=== PATIENT | male | born 1990 | race Caucasian/White ===

== ENCOUNTER 2017-05-26 19:06 | Inpatient (IN) ==
[2017-05-26] MEDS ORDERED: Vancomycin 1,000 MG in D5% in Water 250 ML IVPB ONE (19:17)
[2017-05-26] MEDS ORDERED: Piperacillin/Tazobactam 3.375 GM in Water for inj. (sterile) 20 ML IVP ONE (19:17)
--- NOTE | 2017-05-26 19:31 | Emergency Department Note ---
Disposition Clinical Impression: Hyperglycemia, Hyponatremia, Cellulitis of right lower limb, Uncontrolled hypertension Uncontrolled diabetes mellitus Qualifiers: Diabetes mellitus type: type 1 Diabetes mellitus complication status: with hyperglycemia Qualified Code(s): E10.65 - Type 1 diabetes mellitus with hyperglycemia Disposition: Admitted As Inpatient Condition: Serious Time of Disposition: 21:33 General Adult HPI - General Chief complaint: ED General Medical Stated complaint: high blood pressure, high blood sugar Time Seen by Provider: 05/26/17 19:11 Source: EMS Limitations: no limitations Nursing Notes Reviewed: Yes Vital Signs Reviewed: Yes - History of Present Illness HPI Narrative: 27-year-old male complains of feeling ill for the past several weeks but has worsened over the past 3 days. Patient states his been having nausea and vomiting and severe fatigue for the past 3 days. Patient has not eaten, nor has he taken his insulin and is a type I diabetic. Patient states that 3 days ago he did have 2 Mountain Dew's. Patient has amputated right lower extremity at the knee. Amputation performed [address] Fatima. Patient states he noticed a sore on the tip of the amputated leg times one week ago that has gotten worse and is now purulent. Patient states that he is not had follow-up for his wound. Patient has a history of IV drug abuse of heroin as well as pain prescription opioids. Pain Scale: 6 - Related Data Home Medications Medication Instructions Recorded Confirmed Buprenorphine HCl/Naloxone HCl 1 each SL AD 05/26/17 05/26/17 [Suboxone 8 mg-2 mg Sl Film] Allergies Allergy/AdvReac Type Severity Reaction Status Date / Time tramadol Allergy Anaphylaxis Verified 05/26/17 19:19 All systems ED: reviewed and negative except as stated. Review of Systems: As Per HPI Constitutional: Denies: fever, chills Respiratory: Denies: cough, dyspnea, wheezes Gastrointestinal: Reports: nausea, vomiting. Denies: abdominal pain, diarrhea Past Medical History - Past Medical History Attestation: Yes The following information was validated with the patient. Source: patient, nursing notes reviewed Medical history: Reports: diabetes, GERD, hepatitis, hypertension, other Surgical history: Reports: orthopedic, other (Right below knee amputation) Psychiatric history: Reports: anxiety, depression - Social History Smoking Status: Current every day smoker Smokeless Tobacco Status: No Alcohol use: Reports: none Drug use: Reports: marijuana Physical Exam Vital Signs Temperature 96.8 F L 05/26/17 19:10 Pulse Rate 87 05/26/17 19:10 Respiratory Rate 16 05/26/17 19:10 Blood Pressure 176/125 05/26/17 19:10 O2 Sat by Pulse Oximetry 100 05/26/17 19:10 Temperature 96.8 F L 05/26/17 19:10 Pulse Rate 87 05/26/17 19:10 Respiratory Rate 16 05/26/17 19:10 Blood Pressure 176/125 05/26/17 19:10 O2 Sat by Pulse Oximetry 100 05/26/17 19:10 Oxygen Delivery Oxygen Delivery Room Air CONSTITUTIONAL: Alert and oriented X3, patient appears cachectic and malnourished. Patient patient's substernal and has very poor dentition and patient appears ill HEAD: Normocephalic; atraumatic. EYES: PERRL, no scleral icterus. NOSE: The nose is normal in appearance without rhinorrhea RESP: Normal chest excursion with respiration; breath sounds clear and equal bilaterally; no wheezes, rhonchi, or rales CARD: Regular rhythm, without murmurs, rub or gallop ABD: Non-distended; non-tender, soft,without rigidity, rebound or guarding SKIN: Normal for age and race; warm and dry; no apparent lesions EXTREMITIES: Patient has amputation of right leg at the knee. Patient has a large ulceration at the tip of the stump which is purulent when slight pressure is applied to the area around it is warm and boggy. Vital signs show abnormal blood pressure 176/125 - General Limitations: no limitations General appearance: alert, in no apparent distress Course - Reevaluation(s) Reevaluation #1: POC glucose at bedside taken just after arrival is 600 Time: 19:50 Reevaluation #2: Patient still doing well. Time: 21:39 Vital Signs Temperature 96.8 F L 05/26/17 19:10 Pulse Rate 87 05/26/17 19:10 Respiratory Rate 16 05/26/17 19:10 Blood Pressure 176/125 05/26/17 19:10 O2 Sat by Pulse Oximetry 100 05/26/17 19:10 Temperature 97.5 F L 05/26/17 23:07 Pulse Rate 74 05/26/17 23:07 Respiratory Rate 17 05/26/17 23:07 Blood Pressure 127/90 05/26/17 23:07 O2 Sat by Pulse Oximetry 100 05/26/17 23:07 Oxygen Delivery Oxygen Delivery Room Air Medical Decision Making - MDM Narrative Medical decision making narrative: Patient's concerning for DKA/HHS secondary to noncompliance of his insulin, he is a type I diabetic. His symptoms may be exacerbated by infection at the right knee, so will work him up for sepsis. Patient has an amputation. Patient's blood glucose came back at 1021, patient's sodium is low at 110 but adjusted for elevated blood glucose is 122. Patient is receiving IV normal saline. Patient's potassium is 5 and will be started on insulin drip. Patient is restarted on IV antibiotics of vancomycin and Zosyn for his right lower extremity cellulitis and abscess. Patient is still alert and doing well. He is in stable condition and patient will be admitted for further treatment. Patient understands and agrees decision for admission. Patient was accepted for admission by Dr. Jefferson the hospitalist. - Lab Data Lab results reviewed: Yes I reviewed the patient's lab results. Lab results narrative: Short CBC 05/26/17 Range/Units 20:21 WBC 6.8 (4.3-11.1) K/mcL Hgb 11.6 L (12.9-16.9) g/dL Hct 35.2 L (37.5-50.1) % Plt Count 544 H (140-400) K/mcL Neutrophils # 4.8 (1.6-8.9) K/mcL BMP 05/26/17 Range/Units 20:21 Sodium 110 L* (136-145) mEq/L Potassium 5.0 (3.5-5.1) mEq/L Chloride 76 L (98-107) mEq/L Carbon Dioxide 27 (23-29) mEq/L BUN 50 H (6-20) mg/dL Creatinine 2.05 H (0.70-1.30) mg/dL Glucose 1021 H* (70-105) mg/dL Calcium 8.4 L (8.6-10.3) mg/dL Cardiac Enzymes 05/26/17 Range/Units 20:21 Troponin I < 0.03 (< 0.04) ng/mL Liver Function 05/26/17 Range/Units 20:21 Total Bilirubin 0.3 (0.3-1.0) mg/dL Direct Bilirubin 0.2 (0.0-0.2) mg/dL AST 11 L (13-39) Units/L ALT 5 L (7-52) Units/L Alkaline Phosphatase 124 H (34-104) Units/L Albumin 2.8 L (3.5-5.7) g/dL Urine 05/26/17 Range/Units 19:33 Urine Color Yellow (Yellow) Urine Clarity Clear (Clear) Urine pH 5.5 (5.0-8.0) pH Units Ur Specific Eleva > 1.030 H (1.010-1.025) Urine Protein 100 H (Neg-Trace) mg/dL Urine Glucose (UA) >=1000 H (Normal) mg/dL Result diagrams: 05/26/17 20:21 05/26/17 20:21 Lab Results 05/26/17 05/26/17 05/26/17 Range/Units 19:11 19:12 19:33 WBC (4.3-11.1) K/mcL RBC (4.19-5.50) M/mcL Hgb (12.9-16.9) g/dL Hct (37.5-50.1) % MCV (83.0-100.0) fL MCH (28.0-33.3) pg MCHC (31.6-35.5) g/dL RDW (11.5-14.5) % Plt Count (140-400) K/mcL MPV (9.4-12.4) fL Immature Gran % (0-4) % Seg Neutrophils % % Lymphocytes % % Monocytes % % Eosinophils % % Basophils % % Neutrophils # (1.6-8.9) K/mcL Lymphocytes # (0.6-4.6) K/mcL Monocytes # (0.0-1.3) K/mcL Eosinophils # (0.0-0.6) K/mcL Basophils # (0.0-0.2) K/mcL VBG pH (7.32-7.42) pH Units VBG pCO2 (41-51) mmHg VBG pO2 (25-50) mmHg VBG HCO3 (21-27) mEq/L Sodium (136-145) mEq/L Potassium (3.5-5.1) mEq/L Chloride (98-107) mEq/L Carbon Dioxide (23-29) mEq/L BUN (6-20) mg/dL Creatinine (0.70-1.30) mg/dL Est GFR ( Amer) (> 60) Est GFR (Non-Af Amer) (> 60) BUN/Creatinine Ratio (6-26) Glucose (70-105) mg/dL POC Glucose > 600 H* > 600 H* (58-89) Calculated Osmolality (280-300) Calcium (8.6-10.3) mg/dL Phosphorus (2.7-4.5) mg/dL Magnesium (1.6-2.6) mg/dL Total Bilirubin (0.3-1.0) mg/dL Direct Bilirubin (0.0-0.2) mg/dL Indirect Bilirubin (0.0-1.2) mg/dL AST (13-39) Units/L ALT (7-52) Units/L Alkaline Phosphatase (34-104) Units/L Troponin I (< 0.04) ng/mL Serum Total Protein (6.4-8.9) g/dL Albumin (3.5-5.7) g/dL Globulin (2.4-3.5) g/dL Albumin/Globulin Ratio (1.1-2.2) Beta-Hydroxybutyric Acd (0.02-0.27) mmol/L Urine Color Yellow (Yellow) Urine Clarity Clear (Clear) Urine pH 5.5 (5.0-8.0) pH Units Ur Specific Eleva > 1.030 H (1.010-1.025) Urine Protein 100 H (Neg-Trace) mg/dL Urine Glucose (UA) >=1000 H (Normal) mg/dL Urine Ketones Negative (Negative) mg/dL Urine Blood Large H (Negative) Urine Nitrite Negative (Negative) Urine Bilirubin Negative (Negative) Urine Urobilinogen Normal (Normal) mg/dL Ur Leukocyte Esterase Negative (Negative) Urine Microscopic RBC 5-15 H (0-3) per hpf Urine Microscopic WBC 15-30 H (0-3) per hpf Ur Squamous Epith Cells Many H (None-Few) per lpf Urine Bacteria None Seen (None-Few) per hpf Hyaline Casts Few (None-Few) per lpf Ur Culture Indicated? NO (NO) 05/26/17 05/26/17 05/26/17 Range/Units 20:21 20:21 20:21 WBC 6.8 (4.3-11.1) K/mcL RBC 4.53 (4.19-5.50) M/mcL Hgb 11.6 L (12.9-16.9) g/dL Hct 35.2 L (37.5-50.1) % MCV 77.7 L (83.0-100.0) fL MCH 25.6 L (28.0-33.3) pg MCHC 33.0 (31.6-35.5) g/dL RDW 13.8 (11.5-14.5) % Plt Count 544 H (140-400) K/mcL MPV 12.0 (9.4-12.4) fL Immature Gran % 0.4 (0-4) % Seg Neutrophils % 70.7 % Lymphocytes % 20.8 % Monocytes % 6.5 % Eosinophils % 0.9 % Basophils % 0.7 % Neutrophils # 4.8 (1.6-8.9) K/mcL Lymphocytes # 1.4 (0.6-4.6) K/mcL Monocytes # 0.4 (0.0-1.3) K/mcL Eosinophils # 0.1 (0.0-0.6) K/mcL Basophils # 0.1 (0.0-0.2) K/mcL VBG pH (7.32-7.42) pH Units VBG pCO2 (41-51) mmHg VBG pO2 (25-50) mmHg VBG HCO3 (21-27) mEq/L Sodium 110 L* (136-145) mEq/L Potassium 5.0 (3.5-5.1) mEq/L Chloride 76 L (98-107) mEq/L Carbon Dioxide 27 (23-29) mEq/L BUN 50 H (6-20) mg/dL Creatinine 2.05 H (0.70-1.30) mg/dL Est GFR ( Amer) 47 L (> 60) Est GFR (Non-Af Amer) 39 L (> 60) BUN/Creatinine Ratio 24 (6-26) Glucose 1021 H* (70-105) mg/dL POC Glucose (58-89) Calculated Osmolality 295 (280-300) Calcium 8.4 L (8.6-10.3) mg/dL Phosphorus 4.3 (2.7-4.5) mg/dL Magnesium 2.8 H (1.6-2.6) mg/dL Total Bilirubin 0.3 (0.3-1.0) mg/dL Direct Bilirubin 0.2 (0.0-0.2) mg/dL Indirect Bilirubin 0.1 (0.0-1.2) mg/dL AST 11 L (13-39) Units/L ALT 5 L (7-52) Units/L Alkaline Phosphatase 124 H (34-104) Units/L Troponin I < 0.03 (< 0.04) ng/mL Serum Total Protein 8.8 (6.4-8.9) g/dL Albumin 2.8 L (3.5-5.7) g/dL Globulin 6.0 H (2.4-3.5) g/dL Albumin/Globulin Ratio 0.5 L (1.1-2.2) Beta-Hydroxybutyric Acd (0.02-0.27) mmol/L Urine Color (Yellow) Urine Clarity (Clear) Urine pH (5.0-8.0) pH Units Ur Specific Eleva (1.010-1.025) Urine Protein (Neg-Trace) mg/dL Urine Glucose (UA) (Normal) mg/dL Urine Ketones (Negative) mg/dL Urine Blood (Negative) Urine Nitrite (Negative) Urine Bilirubin (Negative) Urine Urobilinogen (Normal) mg/dL Ur Leukocyte Esterase (Negative) Urine Microscopic RBC (0-3) per hpf Urine Microscopic WBC (0-3) per hpf Ur Squamous Epith Cells (None-Few) per lpf Urine Bacteria (None-Few) per hpf Hyaline Casts (None-Few) per lpf Ur Culture Indicated? (NO) 05/26/17 05/26/17 05/26/17 Range/Units 20:21 20:39 22:14 WBC (4.3-11.1) K/mcL RBC (4.19-5.50) M/mcL Hgb (12.9-16.9) g/dL Hct (37.5-50.1) % MCV (83.0-100.0) fL MCH (28.0-33.3) pg MCHC (31.6-35.5) g/dL RDW (11.5-14.5) % Plt Count (140-400) K/mcL MPV (9.4-12.4) fL Immature Gran % (0-4) % Seg Neutrophils % % Lymphocytes % % Monocytes % % Eosinophils % % Basophils % % Neutrophils # (1.6-8.9) K/mcL Lymphocytes # (0.6-4.6) K/mcL Monocytes # (0.0-1.3) K/mcL Eosinophils # (0.0-0.6) K/mcL Basophils # (0.0-0.2) K/mcL VBG pH 7.42 (7.32-7.42) pH Units VBG pCO2 40 L (41-51) mmHg VBG pO2 152 H (25-50) mmHg VBG HCO3 26 (21-27) mEq/L Sodium (136-145) mEq/L Potassium (3.5-5.1) mEq/L Chloride (98-107) mEq/L Carbon Dioxide (23-29) mEq/L BUN (6-20) mg/dL Creatinine (0.70-1.30) mg/dL Est GFR ( Amer) (> 60) Est GFR (Non-Af Amer) (> 60) BUN/Creatinine Ratio (6-26) Glucose (70-105) mg/dL POC Glucose > 600 H* (58-89) Calculated Osmolality (280-300) Calcium (8.6-10.3) mg/dL Phosphorus (2.7-4.5) mg/dL Magnesium (1.6-2.6) mg/dL Total Bilirubin (0.3-1.0) mg/dL Direct Bilirubin (0.0-0.2) mg/dL Indirect Bilirubin (0.0-1.2) mg/dL AST (13-39) Units/L ALT (7-52) Units/L Alkaline Phosphatase (34-104) Units/L Troponin I (< 0.04) ng/mL Serum Total Protein (6.4-8.9) g/dL Albumin (3.5-5.7) g/dL Globulin (2.4-3.5) g/dL Albumin/Globulin Ratio (1.1-2.2) Beta-Hydroxybutyric Acd 0.83 H (0.02-0.27) mmol/L Urine Color (Yellow) Urine Clarity (Clear) Urine pH (5.0-8.0) pH Units Ur Specific Eleva (1.010-1.025) Urine Protein (Neg-Trace) mg/dL Urine Glucose (UA) (Normal) mg/dL Urine Ketones (Negative) mg/dL Urine Blood (Negative) Urine Nitrite (Negative) Urine Bilirubin (Negative) Urine Urobilinogen (Normal) mg/dL Ur Leukocyte Esterase (Negative) Urine Microscopic RBC (0-3) per hpf Urine Microscopic WBC (0-3) per hpf Ur Squamous Epith Cells (None-Few) per lpf Urine Bacteria (None-Few) per hpf Hyaline Casts (None-Few) per lpf Ur Culture Indicated? (NO) 05/26/17 Range/Units 22:15 WBC (4.3-11.1) K/mcL RBC (4.19-5.50) M/mcL Hgb (12.9-16.9) g/dL Hct (37.5-50.1) % MCV (83.0-100.0) fL MCH (28.0-33.3) pg MCHC (31.6-35.5) g/dL RDW (11.5-14.5) % Plt Count (140-400) K/mcL MPV (9.4-12.4) fL Immature Gran % (0-4) % Seg Neutrophils % % Lymphocytes % % Monocytes % % Eosinophils % % Basophils % % Neutrophils # (1.6-8.9) K/mcL Lymphocytes # (0.6-4.6) K/mcL Monocytes # (0.0-1.3) K/mcL Eosinophils # (0.0-0.6) K/mcL Basophils # (0.0-0.2) K/mcL VBG pH (7.32-7.42) pH Units VBG pCO2 (41-51) mmHg VBG pO2 (25-50) mmHg VBG HCO3 (21-27) mEq/L Sodium (136-145) mEq/L Potassium (3.5-5.1) mEq/L Chloride (98-107) mEq/L Carbon Dioxide (23-29) mEq/L BUN (6-20) mg/dL Creatinine (0.70-1.30) mg/dL Est GFR ( Amer) (> 60) Est GFR (Non-Af Amer) (> 60) BUN/Creatinine Ratio (6-26) Glucose (70-105) mg/dL POC Glucose > 600 H* (58-89) Calculated Osmolality (280-300) Calcium (8.6-10.3) mg/dL Phosphorus (2.7-4.5) mg/dL Magnesium (1.6-2.6) mg/dL Total Bilirubin (0.3-1.0) mg/dL Direct Bilirubin (0.0-0.2) mg/dL Indirect Bilirubin (0.0-1.2) mg/dL AST (13-39) Units/L ALT (7-52) Units/L Alkaline Phosphatase (34-104) Units/L Troponin I (< 0.04) ng/mL Serum Total Protein (6.4-8.9) g/dL Albumin (3.5-5.7) g/dL Globulin (2.4-3.5) g/dL Albumin/Globulin Ratio (1.1-2.2) Beta-Hydroxybutyric Acd (0.02-0.27) mmol/L Urine Color (Yellow) Urine Clarity (Clear) Urine pH (5.0-8.0) pH Units Ur Specific Eleva (1.010-1.025) Urine Protein (Neg-Trace) mg/dL Urine Glucose (UA) (Normal) mg/dL Urine Ketones (Negative) mg/dL Urine Blood (Negative) Urine Nitrite (Negative) Urine Bilirubin (Negative) Urine Urobilinogen (Normal) mg/dL Ur Leukocyte Esterase (Negative) Urine Microscopic RBC (0-3) per hpf Urine Microscopic WBC (0-3) per hpf Ur Squamous Epith Cells (None-Few) per lpf Urine Bacteria (None-Few) per hpf Hyaline Casts (None-Few) per lpf Ur Culture Indicated? (NO) - Radiology Data Radiology results reviewed: Yes I reviewed the patient's radiology results. Chest X-Ray 05/26/17 19:21 IMPRESSION: No acute cardiopulmonary process. D/ / Jennifer Reyez MD / Jennifer Reyez MD Interpreting Provider: Jennifer Reyez MD Knee X-Ray 05/26/17 19:26 IMPRESSION: 1. Soft tissue thickening of the stump with a few locules of subcutaneous gas present compatible with underlying soft tissue infection. 2. No radiographic evidence for osteomyelitis. D/ / Abdias Huizar MD / Abdias Huizar MD Interpreting Provider: Abdias Huizar MD - EKG Data EKG #1 EKG attestation: Yes I reviewed and interpreted this EKG. EKG results narrative: EKG taken 3102009 1952 hrs. shows sinus rhythm at 70 beats a minute with no acute ST elevations or depressions any leads, patient has large T waves in V3. This EKG is nonischemic. Previous EKG for comparison shows a sinus tachycardia at a rate of 102 beats minute with no signs of ischemia Attestation Statement - Attestation Attestation: I examined this patient and my medical decision-making was reviewed with the Resident Physician. I agree with the documented findings, disposition and treatment plan as described except to the extent set forth below. Patient to the ED with a chief complaint of high blood sugar and blood pressure. Patient has not felt well for a few weeks. Today he has been weak and sleeping. States he did not take his insulin. Vomiting yesterday, but not today. Termination he is in no acute distress. He is pale. Clammy. Abdomen soft lungs clear. Plan. Patient's blood glucose reads high. IV fluids. DKA workup. Likely admit. Blood sugar over 1000. Normal pH, but positive ketones. Will admit. Starting insulin drip. 35 minutes of critical care exclusive of separately billed procedures.
[2017-05-26] MEDS: 0.9 % Sodium Chloride 1,000 ML IVC SCH ×2 (19:51→21:58)
[2017-05-26 19:56] LABS: Bacteria,Urine None Seen per hpf (None-Few); Hyaline Casts,Urine Few per lpf (None-Few); Squamous Epithelial Cell,Urine Many per lpf (None-Few); WBC,Urine 15-30 per hpf (0-3)
[2017-05-26 19:58] LABS: Clarity,Urine Clear (Clear); Color,Urine Yellow (Yellow)
[2017-05-26 19:59] LABS: Bilirubin,Urine Negative (Negative); Blood,Urine Large (Negative); Glucose,Urine (UA) >=1000 mg/dL (Normal); Ketones,Urine Negative (Negative); PH,Urine 5.5 pH Units (5.0-8.0); Protein,Urine 100 mg/dL (Neg-Trace); Specific Gravity,Urine > 1.030 (1.010-1.025); Urobilinogen,Urine Normal (Normal)
[2017-05-26 20:00] LABS: Leukocyte Esterase,Urine Negative (Negative); Nitrite,Urine Negative (Negative)
[2017-05-26 20:30] LABS: Basophils # 0.1 K/mcL (0.0-0.2); Basophils % 0.7 %; Eosinophils # 0.1 K/mcL (0.0-0.6); Eosinophils % 0.9 %; Hematocrit 35.2 % (37.5-50.1); Hemoglobin 11.6 g/dL (12.9-16.9); Immature Granulocytes % 0.4 % (0-4); Lymphocytes # 1.4 K/mcL (0.6-4.6); Lymphocytes % 20.8 %; Mean Corpuscular Hemoglobin 25.6 pg (28.0-33.3); Mean Corpuscular Volume 77.7 fL (83.0-100.0); Monocytes # 0.4 K/mcL (0.0-1.3); Monocytes % 6.5 %; Neutrophils # 4.8 K/mcL (1.6-8.9); Platelet Count 544 K/mcL (140-400); Red Blood Count 4.53 M/mcL (4.19-5.50); Red Cell Distribution Width 13.8 % (11.5-14.5); Segmented Neutrophils % 70.7 %
[2017-05-26 20:41] LABS: VBG HCO3 26 mEq/L (21-27); VBG PCO2 40 mmHg (41-51); VBG PH 7.42 pH Units (7.32-7.42); VBG PO2 152 mmHg (25-50)
[2017-05-26] MEDS ORDERED: 0.9 % Sodium Chloride 1,000 ML IVC ONE (20:51)
[2017-05-26] MEDS ORDERED: *HR* Labetalol 100 MG/20 ML MDV IVP ONE (21:13)
[2017-05-26 21:14] LABS: Albumin 2.8 g/dL (3.5-5.7); Albumin/Globulin Ratio 0.5 (1.1-2.2); Bilirubin,Direct 0.2 mg/dL (0.0-0.2); Bilirubin,Indirect 0.1 mg/dL (0.0-1.2); Bilirubin,Total 0.3 mg/dL (0.3-1.0); Calcium 8.4 mg/dL (8.6-10.3); Magnesium 2.8 mg/dL (1.6-2.6); Phosphorous 4.3 mg/dL (2.7-4.5); Total Protein 8.8 g/dL (6.4-8.9)
[2017-05-26] MEDS ORDERED: *HR* Dextrose 50 % in Water (Syg) 50 ML SYRINGE IVP PRN (21:15)
[2017-05-26] MEDS: Insulin Human Regular 100 UNIT in 0.9 % Sodium Chloride 100 ML IVC SCH (22:11)
--- NOTE | 2017-05-26 22:58 | Internal Med History&Physical ---
Date of Encounter: 05/26/17 Time of Encounter: 22:00 Assessment and Plan (1) Hyperglycemia due to type 1 diabetes mellitus Current visit: No Status: Acute -Patient admits to noncompliance with insulin and found to have a blood glucose of 1021 in the ER without anion gap or ketouria. -Will continue insulin drip started in the ER and monitor blood glucose. (2) Hyponatremia Current visit: Yes Status: Acute -Pseudo-hyponatremia secondary to severe hyperglycemia above -Continue to monitor serial sodium (3) Acute kidney injury Current visit: No Status: Acute -Suspect secondary to dehydration and severe hyperglycemia above. -Will continue IV fluids and monitor (4) Cellulitis of right lower limb Current visit: Yes Status: Acute -Patient with cellulitis of right knee stump; cultures taken in the ER -Continue IV vancomycin/Zosyn -Also consult wound care (5) Uncontrolled hypertension Current visit: Yes Status: Acute -Patient with hypertensive urgency on admission to ER which has been controlled with IV Lopressor and IV hydralazine -Continue home medications. (6) S/P BKA (below knee amputation) unilateral Current visit: No Status: Acute -Prosthesis not fitting probably and patient has not been compliant with followed up (7) Substance abuse Current visit: No Status: Acute -Suspect that patient relapsed with opiate/heroin addiction as patient has not had his Suboxone filled recently according to [facility] report. -Patient reports of intermittent flu like symptoms for the last couple weeks that could be secondary to withdrawal symptoms. -Will continue to monitor (8) DVT prophylaxis Current visit: No Status: Acute -Patient to ambulate Internal Medicine - H&P: HPI Chief complaint: Not feeling well Admitted From: Home Plans for Post Hospital Care: Home History of present illness: Patient is a 27-year-old male with past medical history significant for type 1 insulin-dependent diabetes, hypertension, IV drugs (heroin) and opiate prescription abuse who presents to the ER on 05/26/17 with severe hyperglycemia and with hypertension urgency. Patient admits to noncompliance with insulin and suspect that patient relapsed with opiate/heroin addiction as patient has not had his Suboxone filled recently according to [facility] report. Patient reports of intermittent flu like symptoms for the last couple weeks that could be secondary to withdrawal symptoms. In addition, patient also with drainage from right knee stump and admits that prosthesis does not fit properly but has not followed up. In the ER, patient was found to have a blood glucose level of 1021 without ketouria and slightly elevated beta hydroxy acid. Patient was also found to have acute kidney injury. Patient will be admitted to the medical surgical floor for severe hyperglycemia and right stump cellulitis. Past Med Surg Social Fam HX - Past Medical History Medical history: diabetes, GERD, hepatitis, hypertension, other Psychiatric history: anxiety, depression - Past Surgical History Surgical History: orthopedic, other (Right below knee amputation) - Social History Smoking Status: Current every day smoker Smokeless Tobacco Status: No Alcohol use: none Drug use: marijuana - Family History Grandmother Living Status: Still Living Hx Family Endocrine Disorder: Yes (diabetes) Mother Family Member Ethnicity: Non- Living Status: Still Living Hx Family Cardiac Disorders: Yes (hypertension) Hx Family Respiratory Disorders: No Hx Family Cancer: No Hx Family GI Disorders: No Hx Family Endocrine Disorder: No Hx Family Neuromuscular Disorders: No Hx Family Neurologic Disorders: No Hx Family HEENT Disorders: No Hx Family Autoimmune Disorders: No Internal Medicine - H&P: Meds Buprenorphine HCl/Naloxone HCl [Suboxone 8 mg-2 mg Sl Film] 1 each SL AD [History] 3 Allergy/AdvReac Type Severity Reaction Status Date / Time tramadol Allergy Anaphylaxis Verified 05/26/17 19:19 All Systems PM: A 10-system review of systems was performed and is negative for pertinent findings except as documented above in the HPI. - Constitutional Vitals: Temp Pulse Resp BP Pulse Ox 96.8 F L 70 16 135/95 100 05/26/17 19:10 05/26/17 22:07 05/26/17 22:07 05/26/17 22:07 05/26/17 22:07 General appearance: Present: A&O X 3, no acute distress, answers questions appropriately - Eye Eye exam: Present: normal appearance - ENT ENT exam: Present: mucous membranes moist - Respiratory Respiratory exam: Present: CTAB. Absent: accessory muscle use, rales, rhonchi, wheezes - Cardiovascular Cardiovascular exam: Present: RRR, +S1, +S2. Absent: diastolic murmur, gallop, rubs, systolic murmur - GI/Abdominal GI/Abdominal exam: Present: normal bowel sounds, soft, no peritoneal signs. Absent: distended, tenderness - Extremities Exam Extremities exam: Present: calf tenderness, cyanotic. Absent: pedal edema - Expanded Lower Extremities Exam Knee exam: Present: erythema (Right stump cellulitis with drainage) - Neurological Exam Neurological exam: Present: oriented X3 - Psychiatric Psychiatric exam: Present: normal mood - Skin Skin exam: Present: erythema (Right stump cellulitis with drainage) Internal Med - H&P Results - Labs CBC & Chem 7: 05/26/17 20:21 05/26/17 20:21
[2017-05-26] MEDS ORDERED: Naloxone 0.4 MG/ML INJ IVP PRN (23:15)
[2017-05-26] MEDS ORDERED: Vancomycin 1,000 MG in D5% in Water 250 ML IVPB SCH (23:45)
[2017-05-27] MEDS: 0.45 % Sodium Chloride w/KCl 20 MEQ/1,000 ML MLS IVC SCH ×2 (00:15→07:22)
[2017-05-27 01:00] LABS: Basophils % 0.4 %; Eosinophils # 0.1 K/mcL (0.0-0.6); Eosinophils % 0.9 %; Hematocrit 24.5 % (37.5-50.1); Immature Granulocytes % 2.1 % (0-4); Lymphocytes # 1.6 K/mcL (0.6-4.6); Lymphocytes % 21.7 %; Mean Corpuscular HGB Conc 34.3 g/dL (31.6-35.5); Mean Corpuscular Hemoglobin 26.1 pg (28.0-33.3); Mean Corpuscular Volume 76.1 fL (83.0-100.0); Mean Platelet Volume 11.9 fL (9.4-12.4); Monocytes # 0.4 K/mcL (0.0-1.3); Monocytes % 5.7 %; Neutrophils # 5.2 K/mcL (1.6-8.9); Nucleated Red Blood Cells 0.3 /100 WBC (0); Platelet Count 455 K/mcL (140-400); Red Blood Count 3.22 M/mcL (4.19-5.50); Red Cell Distribution Width 13.4 % (11.5-14.5); Segmented Neutrophils % 69.2 %
[2017-05-27 01:02] LABS: Hemoglobin 8.4 g/dL (12.9-16.9)
[2017-05-27 01:11] LABS: Estimated Average Glucose > 355 mg/dl; Hemoglobin A1C >= 14.1 %
[2017-05-27] MEDS: Insulin Human Regular 100 UNIT in 0.9 % Sodium Chloride 100 ML IVC SCH ×3 (02:40→09:17)
[2017-05-27 03:00] LABS: Potassium 4.1 mEq/L (3.5-5.1)
[2017-05-27 04:34] LABS: Calcium 7.4 mg/dL (8.6-10.3); Potassium 3.9 mEq/L (3.5-5.1)
[2017-05-27 06:36] LABS: Calcium 7.1 mg/dL (8.6-10.3); Potassium 3.7 mEq/L (3.5-5.1)
[2017-05-27] MEDS ORDERED: D5% in 0.45% NACL w KCl 20 MEQ/1,000 ML MLS IVC PRN (08:31)
[2017-05-27] MEDS ORDERED: *HR* Dextrose 50 % in Water (Syg) 50 ML SYRINGE IVP PRN (08:31)
[2017-05-27 09:44] LABS: VBG HCO3 26 mEq/L (21-27); VBG PCO2 41 mmHg (41-51); VBG PO2 125 mmHg (25-50)
[2017-05-27 10:26] LABS: Calcium 6.5 mg/dL (8.6-10.3); Potassium 5.3 mEq/L (3.5-5.1)
--- NOTE | 2017-05-27 11:39 | Internal Med Progress Note ---
Date of Encounter: 05/27/17 Time of Encounter: 11:36 - Assessment and plan (1) Hyperosmolar non-ketotic state in patient with type 2 diabetes mellitus Current Visit: Yes Status: Acute Assessment and plan: Glucoses better. Still elevated. Continue with insulin drip. Obtain Accu- Cheks. Will switch to subcutaneous insulin once glucose is less than 200. (2) Acute kidney injury Current Visit: No Status: Acute Assessment and plan: Will start IV fluids. Avoid nephrotoxins. (3) Anemia Current Visit: No Status: Acute Assessment and plan: Likely dilutional. Hemoglobin did drop from 11.6-8.4. He has been given fluids on admission. We will continue to monitor. No signs of bleeding. Check iron studies. Qualifiers: Anemia type: unspecified type Qualified Code(s): D64.9 - Anemia, unspecified (4) Cellulitis of right lower limb Current Visit: Yes Status: Acute Assessment and plan: The patient has been started on broad-spectrum antibiotics with vancomycin and Zosyn. We will continue that today. We will see if there is any drainage that can be collected for cultures. Consult wound. (5) Uncontrolled hypertension Current Visit: Yes Status: Acute Assessment and plan: Has not been using his lisinopril lately. He takes 10 mg daily says.. He was hypertensive on admission. Blood pressure stable now. Will not restart lisinopril given his kidney function for now. Continue with IV hydralazine to be used when necessary. (6) Hyponatremia Current Visit: Yes Status: Acute Assessment and plan: Pseudohyponatremia secondary to elevated glucose. Trending up with better glucose control. We will continue to. (7) DVT prophylaxis Current Visit: No Status: Acute Assessment and plan: We will add heparin subcutaneous - Subjective Interval history: Patient was seen and examined. Admitted with hyperglycemia. Requiring insulin drip. 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 Patient has a history of substance abuse and seems to have been going through withdrawals. Says he has not been taking any of his insulin or his lisinopril for the last few days he says been feeling sick. Denies any cough. Been afebrile. - Constitutional Vitals: Temp Pulse Resp BP Pulse Ox 97.9 F 78 15 128/85 100 05/27/17 07:19 05/27/17 07:19 05/27/17 07:19 05/27/17 07:19 05/27/17 07:19 General appearance: Present: A&O X 3, no acute distress, answers questions appropriately Exam: GEN: NAD CVS: RRR. S1, S2, No m/r/g RESP: CTAB ABD: Soft, NT, ND, +BS EXT: No edema. 2+ DP. erythema (Right stump cellulitis with drainage NEURO: Nonfocal Internal Medicine: Result - Labs CBC & Chem 7: 05/27/17 00:44 05/27/17 09:21 Labs: Short CBC 05/27/17 Range/Units 00:44 WBC 7.5 (4.3-11.1) K/mcL Hgb 8.4 L D (12.9-16.9) g/dL Hct 24.5 L (37.5-50.1) % Plt Count 455 H (140-400) K/mcL Neutrophils # 5.2 (1.6-8.9) K/mcL BMP 05/27/17 05/27/17 05/27/17 02:31 03:59 05:57 Sodium 120 L* D 119 L* 121 L Potassium 4.1 3.9 3.7 Chloride 89 L 87 L 90 L Carbon Dioxide 25 25 25 BUN 43 H 43 H 44 H Creatinine 1.96 H 2.08 H 2.09 H Glucose 575 H* 451 H 320 H Calcium 7.0 L 7.4 L 7.1 L 05/27/17 09:21 Sodium 118 L* Potassium 5.3 H D Chloride 92 L Carbon Dioxide 23 BUN 40 H Creatinine 1.93 H Glucose 484 H Calcium 6.5 L - VTE Reasons for not Prescribing Prophylaxis: Treatment not Indicated - Low risk for VTE Consult Discharge Plan - Plan Referrals: Luis Fernando Lr DO [Primary Care Provider] - Manoj Ivory DO [Resident] - 05/31/17 10:20 am
[2017-05-27] MEDS ORDERED: Insulin DETEMIR 100 UNIT/ML X5UNITS SQ ONE ×2 (12:05→21:00)
[2017-05-27 12:40] LABS: Calcium 7.1 mg/dL (8.6-10.3); Potassium 4.1 mEq/L (3.5-5.1)
[2017-05-27 13:06] LABS: Folate 9.9 ng/mL (3.0-16.0)
[2017-05-27] MEDS: *HR* Heparin 5,000 UNIT/ML VIAL SQ SCH ×2 (13:11→21:21)
[2017-05-27] MEDS: 0.9 % Sodium Chloride 1,000 ML IVC SCH ×2 (13:11→23:50)
[2017-05-27] MEDS: Insulin LISPRO 300 UNITS/3 ML VIAL SQ SCH ×3 (13:13→21:01)
[2017-05-27] MEDS ORDERED: Vancomycin 1,000 MG in D5% in Water 250 ML IVPB SCH (14:00)
[2017-05-27] MEDS ORDERED: Aminoglycoside Consult 1 EACH MC ONE (14:35)
[2017-05-27 15:42] LABS: Phosphorous 1.8 mg/dL (2.7-4.5)
[2017-05-27] MEDS: cefTRIAXone 1,000 MG in Water for inj. (sterile) 10 ML IVP SCH (16:21)
[2017-05-27 16:36] LABS: Magnesium 2.2 mg/dL (1.6-2.6)
[2017-05-28] MEDS: *HR* Heparin 5,000 UNIT/ML VIAL SQ SCH ×3 (04:55→20:44)
[2017-05-28 05:08] LABS: Basophils # 0.1 K/mcL (0.0-0.2); Basophils % 0.5 %; Eosinophils # 0.2 K/mcL (0.0-0.6); Eosinophils % 1.2 %; Hematocrit 27.6 % (37.5-50.1); Hemoglobin 9.3 g/dL (12.9-16.9); Immature Granulocytes % 0.4 % (0-4); Lymphocytes # 3.7 K/mcL (0.6-4.6); Lymphocytes % 28.8 %; Mean Corpuscular HGB Conc 33.7 g/dL (31.6-35.5); Mean Corpuscular Hemoglobin 25.9 pg (28.0-33.3); Mean Corpuscular Volume 76.9 fL (83.0-100.0); Mean Platelet Volume 11.3 fL (9.4-12.4); Monocytes # 1.2 K/mcL (0.0-1.3); Monocytes % 8.9 %; Neutrophils # 7.8 K/mcL (1.6-8.9); Platelet Count 595 K/mcL (140-400); Red Blood Count 3.59 M/mcL (4.19-5.50); Red Cell Distribution Width 13.8 % (11.5-14.5); Segmented Neutrophils % 60.2 %
[2017-05-28 05:37] LABS: Calcium 7.6 mg/dL (8.6-10.3); Potassium 4.4 mEq/L (3.5-5.1)
[2017-05-28] MEDS: cefTRIAXone 1,000 MG in Water for inj. (sterile) 10 ML IVP SCH (07:50)
[2017-05-28] MEDS: Insulin LISPRO 300 UNITS/3 ML VIAL SQ SCH ×4 (07:52→20:45)
[2017-05-28] MEDS: 0.9 % Sodium Chloride 1,000 ML IVC SCH ×2 (07:52→16:22)
--- NOTE | 2017-05-28 10:27 | Internal Med Progress Note ---
Date of Encounter: 05/28/17 Time of Encounter: 10:24 - Assessment and plan (1) Hyperosmolar non-ketotic state in patient with type 2 diabetes mellitus Current Visit: Yes Status: Acute Assessment and plan: Off insulin drip. Given hypoglycemic episodes will decrease Levemir to 15 units from 26 units. Continue with Accu-Cheks. Continue with insulin sliding scale. A1c noted above 14. Diabetic education.. (2) Acute kidney injury Current Visit: No Status: Acute Assessment and plan: Kidney function seems to be worsening on a consistent basis. May need to consult nephrology. We will check a renal ultrasound for now and go from there. He may have chronic kidney disease now secondary to diabetic nephropathy. Will continue IV fluids. Avoid nephrotoxins. (3) Anemia Current Visit: No Status: Acute Assessment and plan: Likely dilutional versus anemia of chronic disease.. Hemoglobin did drop from 11.6-8.4. But today is 9.3. He has been given fluids on admission. We will continue to monitor. No signs of bleeding. Studies show anemia of chronic disease. Ferritin is 206 with low iron.. Qualifiers: Anemia type: unspecified type Qualified Code(s): D64.9 - Anemia, unspecified (4) Cellulitis of right lower limb Current Visit: Yes Status: Acute Assessment and plan: The cultures growing group A strep. Continue ceftriaxone. Elevation in white count is noted. We will consult surgery. Continue care.. (5) Uncontrolled hypertension Current Visit: Yes Status: Acute Assessment and plan: Has not been using his lisinopril lately. He takes 10 mg daily says. Patient is noncompliant. Remains hypertensive. We will start him on Norvasc 5 mg daily as well as hydralazine 25 mg every 6 hours. Continue with IV hydralazine when necessary. Cannot start him on lisinopril given his kidney function. He was hypertensive on admission. Will not restart lisinopril given his kidney function for now. (6) Hyponatremia Current Visit: Yes Status: Acute Assessment and plan: Pseudohyponatremia secondary to elevated glucose. Trending up with better glucose control. We will continue to follow. Check TSH. (7) DVT prophylaxis Current Visit: No Status: Acute Assessment and plan: heparin subcutaneous - Subjective Interval history: Patient was seen and examined. He has been off insulin drip and switched to subcutaneous insulin with Levemir. Had hypoglycemic episode this morning. Received a total 26 units of Levemir yesterday. Continues to have drainage from his right BKA stump site. Admitted with hyperglycemia. Quieted insulin drip. 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 Patient has a history of substance abuse and seems to have been going through withdrawals. Says he has not been taking any of his insulin or his lisinopril for the last few days he says been feeling sick. Denies any cough. Been afebrile. - Constitutional Vitals: Temp Pulse Resp BP Pulse Ox 97.6 F 82 18 163/116 99 05/28/17 07:07 05/28/17 07:07 05/28/17 07:07 05/28/17 07:07 05/28/17 07:07 General appearance: Present: A&O X 3, no acute distress, answers questions appropriately Exam: GEN: NAD CVS: RRR. S1, S2, No m/r/g RESP: CTAB ABD: Soft, NT, ND, +BS EXT: No edema. 2+ DP. erythema (Right stump cellulitis with drainage NEURO: Nonfocal Internal Medicine: Result - Labs CBC & Chem 7: 05/28/17 05:00 05/28/17 05:00 Labs: Short CBC 05/28/17 Range/Units 05:00 WBC 12.9 H D (4.3-11.1) K/mcL Hgb 9.3 L (12.9-16.9) g/dL Hct 27.6 L (37.5-50.1) % Plt Count 595 H (140-400) K/mcL Neutrophils # 7.8 (1.6-8.9) K/mcL BMP 05/27/17 05/27/17 05/28/17 09:21 12:10 05:00 Sodium 118 L* 123 L 125 L Potassium 5.3 H D 4.1 4.4 Chloride 92 L 92 L 95 L Carbon Dioxide 23 27 25 BUN 40 H 42 H 45 H Creatinine 1.93 H 2.18 H 2.65 H Glucose 484 H 65 L 52 L Calcium 6.5 L 7.1 L 7.6 L - VTE Reasons for not Prescribing Prophylaxis: Treatment not Indicated - Low risk for VTE Consult Discharge Plan - Plan Referrals: Luis Fernando Lr DO [Primary Care Provider] - Manoj Ivory DO [Resident] - 05/31/17 10:20 am
[2017-05-28] MEDS ORDERED: Ondansetron 4 MG/2 ML VIAL ONE (10:38)
[2017-05-28] MEDS: hydrALAZINE 25 MG TABLET PO SCH ×2 (10:48→16:22)
[2017-05-28] MEDS: amLODIPine 5 MG TABLET PO SCH (10:48)
[2017-05-28] MEDS: *HR* HYDROcodone/Acet 5/325 mg TABLET PO PRN ×2 (11:06→16:22)
[2017-05-28] MEDS: Ondansetron 4 MG/2 ML VIAL IVP PRN ×2 (11:06→20:43)
--- NOTE | 2017-05-28 12:59 | Electrocardiograph Report ---
[address] [address] Test Date: 2017-05-26 Pat Name: Kieran Anders Department: 104 Room: 2N12 Gender: M Director Learning And Development: VIDYA : 1990 Requested By: Da Greene Order Number: [id number] Reading MD: Kieran Lay Measurements Intervals [place] Rate: 78 P: 69 DE: 163 QRS: 66 QRSD: 98 T: 67 QT: 382 QTc: 416 Interpretive Statements SINUS RHYTHM Electronically Signed On 05-28-2017 12:57:36 EST by Kieran Lay
--- NOTE | 2017-05-28 14:55 | Vascular/Endovasc Consult Note ---
Date of Encounter: 05/28/17 Time of Encounter: 14:00 Assessment and Plan (1) Abscess of right lower extremity Current Visit: Yes Status: Acute BeginTwice a day dressing changes to the right BKA using iodoform gauze packing. Patient will need referral to the wound clinic upon discharge. Continue antibiotics long-term. Patient is not to wear right BKA prosthesis until the right amputation site wound has completely healed and he has been released from the wound clinic. (2) Type 1 diabetes mellitus Current Visit: Yes Status: Chronic Poorly controlled and noncompliant patient with type 1 diabetes. 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 Refer to wound clinic for further evaluation and long-term care. Qualifiers: Non-pressure ulcer stage: with fat layer exposed Qualified Code(s): L97.522 - Non-pressure chronic ulcer of other part of left foot with fat layer exposed - History of Present Illness Consult date: 05/28/17 Consult reason: Right BKA wound Chief complaint: Right BKA wound History of present illness: Mr. Anders is a 27 year old male Who was admitted via the emergency room with a variety of complaints. He was found to have marked elevation in his blood sugar and a draining wound from his right BKA. The patient states that he had noticed a sore or abscess form at the BKA approximately 4 days prior to admission. The area then began to drain spontaneously. During this time he was feeling very ill and tired. He admits that he did not take any of his insulin for 3 days though he is a type I diabetic. He had lost his right lower extremity due to a diabetic foot infection. He had undergone a right gbdab-ywj-lwwi amputation in August 2015. The patient does have a prosthesis for the right gossv-cyy-zprs amputation. He states he obtain this from [employer] in approximate December or January 2016. He has not had it readjusted and admits that it is fitting poorly. He uses the prosthesis every day. In addition the patient has had intermittent wounds on the base of the left first toe. He has seen Dr. Zamora in the past for this. He states that the wound at the left first toe is getting worse. Past Med Surg Social Fam HX - Past Medical History Medical history: diabetes, GERD, hepatitis, hypertension, other Psychiatric history: anxiety, depression - Past Surgical History Surgical History: orthopedic, other (Right below knee amputation-August 2015) - Social History Smoking Status: Current every day smoker Smokeless Tobacco Status: No Alcohol use: none Drug use: marijuana - Family History Grandmother Name: JANETTE Age: 63 Family Member Ethnicity: Non- Living Status: Still Living Hx Family Cardiac Disorders: No Hx Family Endocrine Disorder: Yes (diabetes) Mother Name: SELENA Age: 49 Family Member Ethnicity: Non- Living Status: Still Living Hx Family Cardiac Disorders: Yes (hypertension) Hx Family Respiratory Disorders: No Hx Family Cancer: No Hx Family GI Disorders: No Hx Family Genitourinary Disorders: No Hx Family Endocrine Disorder: No Hx Family Musculoskeletal Disorders: No Hx Family Neuromuscular Disorders: No Hx Family Neurologic Disorders: No Hx Family HEENT Disorders: No Hx Family Autoimmune Disorders: No Hx Family Reproductive Disorders: No Hx Family Psychosocial Disorders: No Hx Family Medical Disorders: No Medications and Allergies Buprenorphine HCl/Naloxone HCl [Suboxone 8 mg-2 mg Sl Film] 1 each SL AD [History] 3 Allergy/AdvReac Type Severity Reaction Status Date / Time tramadol Allergy Anaphylaxis Verified 05/26/17 19:19 All Systems Review: A 10-system review of systems was performed and is negative for pertinent findings except as documented above in the HPI. Exam Vital Signs, Last 4 Hours Temp Pulse Resp BP Pulse Ox 05/28/17 11:54 97.9 F 90 19 148/88 97 05/28/17 11:05 95 20 148/88 98 General: Present: Conversant, No Apparent Distress HEENT: Present: Atraumatic, Normocephaly Neck: Absent: JVD Neuro: Present: Alert and responsive, No focal deficits noted, Cranial nerves grossly intact. Absent: Sensory nerves grossly intact Abdomen: Present: Soft, Non-tender Vascular: Present: Normal capillary refill, Pulse, normal (On left lower extremity), Amputation(s) (Patient has a excoriated area approximately the size of a half-dollar on the distal aspect of the right BKA. He has a pinpoint area draining fluid. On manipulation of the below the knee soft tissue tammy pus was expressed. Therefore this area was further explored using a I&D kit. The tract was gently dilated with surgical instruments. A culture was obtained of the cavity deep within the calf. The tracking of the cavity suggest both a suprafascial and perhaps infra-fascial location. No significant pus was able to be expressed on deep manipulation. This area was then packed with iodoform gauze.), Other (The patient has a superficial ulceration on the plantar surface of the base of the left first toe. This is approximately the size of a quarter.) Skin: Present: No rashes noted on visualized skin Consult Discharge Plan - Plan Additional Instructions: Patient is to follow-up with the wound care clinic upon discharge. He is not to wear his right below the knee prosthesis until he has been cleared from the wound clinic and the prosthesis has been readjusted by [facility]. Referrals: Luis Fernando Lr DO [Primary Care Provider] - Manoj Ivory DO [Resident] - 05/31/17 10:20 am
[2017-05-28] MEDS ORDERED: cefTRIAXone 2,000 MG in Water for inj. (sterile) 20 ML IVP SCH (21:00)
[2017-05-28] MEDS ORDERED: Insulin DETEMIR 100 UNIT/ML X5UNITS SQ SCH ×2 (21:00)
[2017-05-29] MEDS: *HR* OxyCODONE Immed Rel 5 MG TABLET PO PRN ×2 (00:49→12:03)
[2017-05-29] MEDS: hydrALAZINE 25 MG TABLET PO SCH ×2 (00:49→06:23)
[2017-05-29] MEDS: 0.9 % Sodium Chloride 1,000 ML IVC SCH (04:29)
[2017-05-29 04:44] LABS: Basophils # 0.1 K/mcL (0.0-0.2); Basophils % 0.8 %; Eosinophils # 0.1 K/mcL (0.0-0.6); Hematocrit 25.7 % (37.5-50.1); Hemoglobin 8.2 g/dL (12.9-16.9); Immature Granulocytes % 0.4 % (0-4); Lymphocytes # 1.9 K/mcL (0.6-4.6); Lymphocytes % 23.8 %; Mean Corpuscular HGB Conc 31.9 g/dL (31.6-35.5); Mean Corpuscular Hemoglobin 25.4 pg (28.0-33.3); Mean Corpuscular Volume 79.6 fL (83.0-100.0); Mean Platelet Volume 11.2 fL (9.4-12.4); Monocytes # 0.7 K/mcL (0.0-1.3); Monocytes % 9.3 %; Neutrophils # 5.2 K/mcL (1.6-8.9); Platelet Count 486 K/mcL (140-400); Red Blood Count 3.23 M/mcL (4.19-5.50); Red Cell Distribution Width 14.2 % (11.5-14.5); Segmented Neutrophils % 64.7 %
[2017-05-29 05:03] LABS: Potassium 4.6 mEq/L (3.5-5.1)
[2017-05-29] MEDS: *HR* Heparin 5,000 UNIT/ML VIAL SQ SCH ×2 (06:23→14:01)
[2017-05-29] MEDS: Insulin LISPRO 300 UNITS/3 ML VIAL SQ SCH ×2 (07:52→12:02)
[2017-05-29] MEDS: *HR* HYDROcodone/Acet 5/325 mg TABLET PO PRN (07:52)
[2017-05-29] MEDS: amLODIPine 5 MG TABLET PO SCH (07:52)
[2017-05-29] MEDS ORDERED: Insulin DETEMIR 100 UNIT/ML X5UNITS SQ ONE (11:10)
[2017-05-29 11:16] VITALS: BP 134/80
[2017-05-29] MEDS ORDERED: Insulin LISPRO 300 UNITS/3 ML VIAL SQ SCH (11:30)
--- NOTE | 2017-05-29 11:54 | Internal Med Progress Note ---
Date of Encounter: 05/29/17 Time of Encounter: 11:51 - Assessment and plan (1) Hyperosmolar non-ketotic state in patient with type 2 diabetes mellitus Current Visit: Yes Status: Acute Assessment and plan: Off insulin drip. Glucose is uncontrolled again. Been noncompliant with diet. Will increase Levemir to 20 units daily. We will add 5 units pre-meal boluses. Continue with Accu-Cheks. Continue with insulin sliding scale. A1c noted above 14. Diabetic education.. (2) Acute kidney injury Current Visit: No Status: Acute Assessment and plan: Kidney function continues to worsen. Renal ultrasound results noted. Consult nephrology. We will stop IV fluids. He may have chronic kidney disease now secondary to diabetic nephropathy. Avoid nephrotoxins. (3) Anemia Current Visit: No Status: Acute Assessment and plan: Likely dilutional versus anemia of chronic disease.. Hemoglobin did drop from 11.6-8.4. It is 8.2 today.. He has been given fluids on admission. We will continue to monitor. No signs of bleeding. Studies show anemia of chronic disease. Ferritin is 206 with low iron.. Qualifiers: Anemia type: unspecified type Qualified Code(s): D64.9 - Anemia, unspecified (4) Cellulitis of right lower limb Current Visit: Yes Status: Acute Assessment and plan: The cultures growing group A strep. Continue ceftriaxone. Elevation in white count is noted. Vascular following. Continue care.. (5) Uncontrolled hypertension Current Visit: Yes Status: Acute Assessment and plan: Has not been using his lisinopril lately. He takes 10 mg daily says. Patient is noncompliant. Blood pressure is on the lower side this morning. We will lower hydralazine to 25 mg twice a day from 4 times a day. Continue with Norvasc 5 mg daily. Continue with IV hydralazine when necessary. Cannot start him on lisinopril given his kidney function. He was hypertensive on admission. Will not restart lisinopril given his kidney function for now. (6) Hyponatremia Current Visit: Yes Status: Acute Assessment and plan: Continues to worsen. She was suspected to be Pseudohyponatremia secondary to elevated glucose. His glucose continues to be elevated however is not significantly elevated to cause this degree of hyponatremia. Stop IV fluids. Consult nephrology. Normal TSH (7) DVT prophylaxis Current Visit: No Status: Acute Assessment and plan: heparin subcutaneous - Subjective Interval history: Patient was seen and examined. no acute events. Glucose is elevated but per nursing, family has been sneaking non recommended diet. seen by vascular yesterday and underwent debridemnt of right BKA bedisde. He has been off insulin drip and switched to subcutaneous insulin with Levemir. . Admitted with hyperglycemia. Quieted insulin drip. 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 Patient has a history of substance abuse and seems to have been going through withdrawals. Says he has not been taking any of his insulin or his lisinopril for the last few days he says been feeling sick. Denies any cough. Been afebrile. - Constitutional Vitals: Temp Pulse Resp BP Pulse Ox 98.1 F 89 14 134/80 98 05/29/17 11:09 05/29/17 11:09 05/29/17 11:09 05/29/17 11:09 05/29/17 11:09 General appearance: Present: A&O X 3, no acute distress, answers questions appropriately Exam: GEN: NAD CVS: RRR. S1, S2, No m/r/g RESP: CTAB ABD: Soft, NT, ND, +BS EXT: No edema. 2+ DP. erythema (Right stump cellulitis with drainage NEURO: Nonfocal Internal Medicine: Result - Labs CBC & Chem 7: 05/29/17 04:35 05/29/17 04:35 Labs: Short CBC 05/29/17 Range/Units 04:35 WBC 8.0 (4.3-11.1) K/mcL Hgb 8.2 L (12.9-16.9) g/dL Hct 25.7 L (37.5-50.1) % Plt Count 486 H (140-400) K/mcL Neutrophils # 5.2 (1.6-8.9) K/mcL BMP 05/29/17 04:35 Sodium 122 L Potassium 4.6 Chloride 95 L Carbon Dioxide 23 BUN 46 H Creatinine 3.12 H Glucose 339 H Calcium 7.0 L - Impressions Impressions Retroperitoneum Ultrasound 05/28/17 16:30 IMPRESSION: 1. Ascitic fluid accumulation in the pelvis and right upper quadrant. 2. No focal abnormality related to either kidney. D/ / Schuyler Vidal / Schuyler Vidal Interpreting Provider: Schuyler Vidal - VTE Reasons for not Prescribing Prophylaxis: Treatment not Indicated - Low risk for VTE Consult Discharge Plan - Plan Additional Instructions: Patient is to follow-up with the wound care clinic upon discharge. He is not to wear his right below the knee prosthesis until he has been cleared from the wound clinic and the prosthesis has been readjusted by [facility]. Referrals: Luis Fernando Lr DO [Primary Care Provider] - Manoj Ivory DO [Resident] - 05/31/17 10:20 am
--- NOTE | 2017-05-29 13:46 | Event Note ---
Date of Encounter: 05/29/17 Time of Encounter: 13:41 Was called by nursing staff and the patient was received. From my standpoint the patient is not ready for discharge. He is not even close to being ready to discharge. His kidney function is worsening. His hyponatremia is critical. His blood pressure needs to be better controlled with further adjustments of antihypertensives. His glucose needs better controlled and I have been make adjustments to his insulin regimen on a daily basis. His wound needs to be further monitored. I have talked to the patient and explained to him the risks of leaving against medical advise. He is adamant about being discharged. I am going to discharge him against my medical advice. I will still write him a prescription for insulin as well as antihypertensives and antibiotics for his wound of the right BKA stump which was divided bedside by Dr. Hale. I am still trying to make accommodations for him to follow-up with vascular as well as the wound clinic. Earlier in the day I had put in a consult for nephrology to see the patient, however the patient would not wait for them to come and evaluate him.
--- NOTE | 2017-05-29 13:48 | Discharge Summary ---
Date of Encounter: 05/29/17 Time of Encounter: 13:47 - Discharge Diagnosis (1) Hyperosmolar non-ketotic state in patient with type 2 diabetes mellitus Priority: Primary Status: Acute (2) Acute kidney injury Priority: Primary Status: Acute (3) Anemia Priority: Secondary Status: Acute Qualifiers: Anemia type: unspecified type Qualified Code(s): D64.9 - Anemia, unspecified (4) Cellulitis of right lower limb Priority: Primary Status: Acute (5) Uncontrolled hypertension Priority: Primary Status: Acute (6) Hyponatremia Priority: Primary Status: Acute - Discharge Medications Prescriptions: amLODIPine [Norvasc] 5 mg PO DAILY #30 tablet Amoxicillin/Clavulanate [Augmentin] 875 mg PO BIDWM #20 tablet hydrALAZINE [HydrALAZINE] 25 mg PO BID #30 tablet Insulin Degludec [Tresiba Flextouch U-100] 100 unit SQ DAILY #5 insuln.pen Home Medications: Buprenorphine HCl/Naloxone HCl [Suboxone 8 mg-2 mg Sl Film] 1 each SL AD [History] Amoxicillin/Clavulanate [Augmentin] 875 mg PO BIDWM #20 tablet 05/29/17 [Rx] Insulin Degludec [Tresiba Flextouch U-100] 100 unit SQ DAILY #5 insuln.pen 05/29 [Rx] amLODIPine [Norvasc] 5 mg PO DAILY #30 tablet 05/29/17 [Rx] hydrALAZINE [HydrALAZINE] 25 mg PO BID #30 tablet 05/29/17 [Rx] Allergies/Adverse Reactions: 3 Allergy/AdvReac Type Severity Reaction Status Date / Time tramadol Allergy Anaphylaxis Verified 05/26/17 19:19 Procedures/tests Complete & Pending: Procedures Performed prior 72 hours Category Date Time Status US retroperitoneal comp [US] Routine Exams 05/28/17 16:30 Completed Date of admission: 05/26/17 23:16 Primary care physician: Luis Fernando Esquivel DO Consults: 05/26/17 23:24 Consult to Wound Care [CONS] Routine Reason for Consult: Right stump cellulitis with drainage Call Completed: No 05/28/17 10:28 Consult to Diabetes Education [CONS] Routine Comment: Reason for Consult: uncontrolled diabetes 05/28/17 10:42 Consult to Vascular Surgery [CONS] Routine Consulting Provider: Tom Ramos Reason for Consult: s/p right BKA. has drainage. cultures positive Call Completed: Yes 05/28/17 15:28 Consult to Manager Rn Case [CONS] Routine Reason for SW Consult: Pt will need wound care upon discharge and follow up care 05/28/17 15:29 Consult to Nutrition [CONS] Routine Comment: Consulting Provider: NUTRITION Reason for Dietary Consult: Diet Education Other:: Diabetic education 05/29/17 11:09 Consult to Nephrology [CONS] Routine Consulting Provider: Kidney Hannah/JANIE/MINERVA/SANTOSH Reason for Consult: RORO on CKD, hyponatremia Call Completed: No - Patient Status Disposition: Left Against Medical Advice Condition: Critical Overall status at discharge: patient is not back to baseline - Discharge Instructions Instructions: Amoxicillin (By mouth), Hydralazine (By mouth), Amlodipine (By mouth), Diabetes Insipidus (DC), Basic Carbohydrate Counting (DC), Meal Planning with the Plate Model (DC), Meal Planning with Diabetes Exchanges (DC) Follow Up With: WOUND, CLINIC [Other] (WEB REQUEST SENT 05/29/2017. OFFICE WILL CALL PATIENT WITH F/U APPOINTMENT.) Manoj Ivory DO [Resident] - 05/31/17 10:20 am Tom Ramos MD [Partnered Physician] - (WEB REQUEST COMPLETED. THE OFFICE SHOULD CALL YOU WITH A APPOINTMENT. ) Additional Instructions: Patient is to follow-up with the wound care clinic upon discharge. He is not to wear his right below the knee prosthesis until he has been cleared from the wound clinic and the prosthesis has been readjusted by [employer]. PER DR. RAMOS, Keep site clean. Apply gauze and delmis wrap. Change daily or as needed if soiled. Follow up at the wound clinic. Check your blood glucose before meals and at bedtime. Take meds as directed. - Diet and Activity Diet: diabetic diet Hospital course: Mr. Anders is a 27 year old male with past medical history significant for type 1 insulin-dependent diabetes, hypertension, IV drugs (heroin) and opiate prescription abuse who presented to the ER on 05/26/17 with severe hyperglycemia and with hypertension urgency. Patient admited to noncompliance with insulin and suspect that patient relapsed with opiate/heroin addiction as patient has not had his Suboxone filled recently according to [facility] report. Patient reports of intermittent flu like symptoms for the last couple weeks that could be secondary to withdrawal symptoms. In addition, patient also with drainage from right knee stump and admits that prosthesis does not fit properly but has not followed up. In the ER, patient was found to have a blood glucose level of 1021 without ketouria and slightly elevated beta hydroxy acid. Patient was also found to have acute kidney injury. Patient will be admitted to the medical surgical floor for severe hyperglycemia and right stump cellulites. He was admitted and put on an insulin drip with better glycemic control. He was noted to have hyponatremia around 110 initially which was suspected to be pseudohyponatremia initally due to elevated glucose. His hyponatremia improved but stayed in the low 120's despite glucose in the 100 -300s. He was started on anti-hypertensives and his blood pressure improved. He was seen by vascular and a bedside right BKA stump cleaning/packing/probing/ and dressing was done with culture positive for group A strep pyogenes. He was on ceftriaxone here throughout. He was noted by nursing staff not adhering to diabetic diet recommendation as family brought him food and mountain dew. His kidney function was elevated on admission and it continued to rise. A renal US was mostly unremarkable. I consulted with nephrology but they had no chance to see the patient as he wanted to leave [place]. I spoke to the patient and told him that he was not close to being ready for discharge but he was adamant as he stated that his "dog was hit by a car". I still gave him scripts for augmetin, levemir, and anti-hypertensives at discharge. The patient is ill and has critical hyponatremia at the time of him leaving [place]. - Time Spent with Patient Total time spent providing and/or coordinating discharge services: Greater than 30 minutes - Constitutional Vitals: Temp Pulse Resp BP Pulse Ox 98.1 F 88 14 134/80 98 05/29/17 11:09 05/29/17 11:55 05/29/17 11:09 05/29/17 11:09 05/29/17 11:09 General appearance: Present: A&O X 3, no acute distress, answers questions appropriately Exam: GEN: NAD CVS: RRR. S1, S2, No m/r/g RESP: CTAB ABD: Soft, NT, ND, +BS EXT: No edema. 2+ DP. erythema (Right stump cellulitis with drainage NEURO: Nonfocal - VTE Reasons for not Prescribing Prophylaxis: Treatment not Indicated - Low risk for VTE
[2017-05-29] MEDS ORDERED: Insulin DETEMIR 100 UNIT/ML X5UNITS SQ SCH (21:00)
[2017-05-29] MEDS ORDERED: hydrALAZINE 25 MG TABLET PO SCH (21:00)
== END 2017-05-29 14:36 | disposition left against medical advice (07) | DRG 420 ==
LOC: 2NNU 19:06 → EMEROO 19:06 → 2NNU 22:43
PROVIDERS: ADMIT Internal Medicine; ATTEND Internal Medicine

== ENCOUNTER 2017-10-01 18:25 | Inpatient (IN) ==
[2017-10-01] MEDS ORDERED: NALOXONE 4 MG Nasal Spray 2 Sprays/Box NS ONE (18:31)
--- NOTE | 2017-10-01 18:53 | Emergency Department Note ---
Disposition Clinical Impression: Confusion, Hypoglycemia, Unresponsive episode, Cellulitis of right lower limb, CKD stage 4 due to type 1 diabetes mellitus Anemia Qualifiers: Anemia type: unspecified type Qualified Code(s): D64.9 - Anemia, unspecified Type 1 diabetes mellitus Qualifiers: Diabetes mellitus complication status: with unspecified complications Qualified Code(s): E10.8 - Type 1 diabetes mellitus with unspecified complications Disposition: Admitted As Inpatient Condition: Undetermined Referrals: Luis Fernando Lr DO [Primary Care Provider] - Forms: ED Satisfaction Letter, Work/School Release Time of Disposition: 20:50 General Adult HPI - General Chief complaint: ED General Medical Stated complaint: Low blood sugar Time Seen by Provider: 10/01/17 18:48 Source: EMS Mode of arrival: EMS Limitations: altered mental status Nursing Notes Reviewed: Yes Vital Signs Reviewed: Yes - History of Present Illness HPI Narrative: 27-year-old male with extensive history of diabetes and poor compliance with medication, arrives to the emergency department after being found in the bathtub unresponsive. His glucose was found to be in the 20s at that time. Glucagon was administered the patient quickly claudia into the 70s and 80s from EMS. They administered 1 dose of Narcan. Upon arrival to the emergency department the patient is alert but slurring his words. He denies any drug use or diarrhea denies any other complaints. The patient is covered in ulcerations and wounds across his entire body. He appears to have a history of a BKA of the right lower extremity. The patient's glucose was immediately checked and was noted to be 86. The patient was noted to be mildly tachycardic with a heart rate in the low 100s. He denies any active drug use or alcohol use at this time. Pain Scale: 0 - Related Data Home Medications Medication Instructions Recorded Confirmed Buprenorphine HCl/Naloxone HCl 1 each SL AD 05/26/17 05/26/17 [Suboxone 8 mg-2 mg Sl Film] Previous Rx's Medication Instructions Recorded Amoxicillin/Clavulanate [Augmentin] 875 mg PO BIDWM #20 tablet 05/29/17 Insulin Degludec [Tresiba 100 unit SQ DAILY #5 insuln.pen 05/29/17 Flextouch U-100] amLODIPine [Norvasc] 5 mg PO DAILY #30 tablet 05/29/17 hydrALAZINE [HydrALAZINE] 25 mg PO BID #30 tablet 05/29/17 Allergies Allergy/AdvReac Type Severity Reaction Status Date / Time tramadol Allergy Anaphylaxis Verified 05/26/17 19:19 All systems ED: reviewed and negative except as stated. Constitutional: Reports: weakness. Denies: fever, chills ENT ED: Denies: congestion Cardiovascular: Denies: chest pain Respiratory: Denies: dyspnea Gastrointestinal: Reports: diarrhea. Denies: abdominal pain, nausea, vomiting Musculoskeletal: Denies: back pain Neurological: Reports: confusion Past Medical History - Past Medical History Attestation: Yes The following information was validated with the patient. Source: patient, old records reviewed Medical history: Reports: diabetes, GERD, hepatitis, hypertension, other Surgical history: Reports: orthopedic, other (Right below knee amputation-August 2015) Psychiatric history: Reports: anxiety, depression - Social History Smoking Status: Current every day smoker Smokeless Tobacco Status: No Alcohol use: Reports: none Drug use: Reports: marijuana Physical Exam - General Limitations: altered mental status General appearance: alert, appears intoxicated - Head Head exam: atraumatic, normocephalic, normal inspection - Eye Eye exam: Present: normal appearance, PERRL, EOMI - ENT ENT exam: normal exam, normal oropharynx, mucous membranes moist - Neck Neck exam: Present: normal inspection, full ROM, trachea midline - Chest Chest inspection: Present: normal inspection, symmetric chest wall rise - Respiratory Respiratory exam: Present: normal lung sounds bilaterally - Cardiovascular Cardiovascular exam: Present: normal rhythm, tachycardia, normal heart sounds - Abdominal Exam Abdominal exam: Present: soft, Non-Tender. Absent: tenderness, distention, guarding, rebound, rigidity, pulsatile mass - Extremities Exam Extremities exam: Present: other (Right BKA, Patient is covered in ulcerations on all extremities, trunk and neck.) - Neurological Exam Neurological exam: Present: alert - Expanded Neurological Exam Patient oriented to: Present: person Cranial nerves: EOM function (II, III, IV, ): Normal, facial sensation (V): Normal, facial palsy (VII): Normal Motor strength - LUE: 3/5 Motor strength - RUE: 3/5 Motor strength - LLE: 3/5 Motor strength - RLE: 3/5 Sensory exam upper extremity: light touch: Normal Sensory exam lower extremity: light touch: Normal Coma Scale Eye Opening: Spontaneous Coma Scale Motor Response: Obeys Commands Coma Scale Verbal Response: Confused Coma Scale Total: 14 - Skin Skin exam: Present: other (Ulcerations in all extremities) Course Vital Signs Temperature 94.8 F L 10/01/17 18:28 Pulse Rate 100 10/01/17 18:28 Respiratory Rate 14 10/01/17 18:28 Blood Pressure 131/76 10/01/17 18:28 O2 Sat by Pulse Oximetry 99 10/01/17 18:28 Temperature 94.8 F L 10/01/17 18:28 Pulse Rate 100 10/01/17 18:28 Respiratory Rate 14 10/01/17 18:28 Blood Pressure 131/76 10/01/17 18:28 O2 Sat by Pulse Oximetry 99 10/01/17 18:28 Oxygen Delivery Oxygen Delivery Room Air Procedures - Central Line Placement Right IJ Central Line Inserted*: Yes Central Line Insertion: emergent Consent Obtained: verbal consent Procedural Pause: verify patient name and date of , timeout performed per policy, assemble equipment and verify supplies, perform hand hygiene Patient Placed on Monitor/Pulse Ox: Yes During the Procedure: clinician is wearing sterile gloves, cap, mask,& gown during insertion, sterile field and sterile technique are maintained, patient's face is covered with drape or mask and wearing a cap, everyone in room is wearing a mask Central Line Prep: Chlorhexidine scrub Prep the Procedure Site: apply chloraprep to the skin using a back and forth scrubbing motion, apply chloraprep for 30 seconds (upper body), 1-2 min ( femoral sites), allow prep to dry, drape the patient with a full body drape Local Anesthetic: lidocaine 1%, with epi Amount of anesthesia used (mL): 3 Ultrasound Used for Placement: Yes Central Line Lumen Inserted: triple Post Procedure: sutured in place, good blood return, all ports aspirated, flushed, capped, sterile dressing applied, guide wire removed and visualized Post Procedure X-Ray: tip of catheter in good position, no pneumothorax seen Patient Tolerated Procedure: well, no complications Complications: none Name of Clinician Inserting Central Line: Miladys Clinician Assisting/Completing Checklist: Stephan Date: 10/01/17 Time: 19:46 Medical Decision Making - MDM Narrative Medical decision making narrative: Workup in the emergency department demonstrates numerous findings. The patient remains intermittently hypo-glycemic with his last glucose of 61 per blood work. He was given an amp of D50 since as well as started on a D5 drip. The patient was also noted to be acidotic with likely metabolic acidosis. He is anemic as well which is likely associated with anemia of chronic disease as the patient denied any black or bloody stools or hematemesis. The patient looks that he has a chronic kidney disease when comparing his old creatinine levels. The patient also appears to have a concern for possible right upper lobe pneumonia and given the patient's extensive ulcerations and possible cellulitis of the right BKA, the patient was started on vancomycin and Zosyn. Head CT demonstrates no acute process. Central line was placed in the right IJ due to poor vascular access. We will admit the patient to the hospital at this time. Accepted by Dr. Foss. Critical care time roughly 35 minutes minus procedures. - Medical Records Medical records reviewed: Yes I reviewed the patient's medical records. - Lab Data Lab results reviewed: Yes I reviewed the patient's lab results. Result diagrams: 10/01/17 18:49 10/01/17 18:49 Lab Results 10/01/17 10/01/17 10/01/17 Range/Units 18:49 18:49 18:49 WBC 13.2 H (4.3-11.1) K/mcL RBC 2.90 L (4.19-5.50) M/mcL Hgb 7.7 L (12.9-16.9) g/dL Hct 24.0 L (37.5-50.1) % MCV 82.8 L (83.0-100.0) fL MCH 26.6 L (28.0-33.3) pg MCHC 32.1 (31.6-35.5) g/dL RDW 15.9 H (11.5-14.5) % Plt Count 297 (140-400) K/mcL MPV 11.4 (9.4-12.4) fL Immature Gran % 0.5 (0-4) % Seg Neutrophils % 82.5 % Lymphocytes % 10.7 % Monocytes % 5.7 % Eosinophils % 0.2 % Basophils % 0.4 % Neutrophils # 10.9 H (1.6-8.9) K/mcL Lymphocytes # 1.4 (0.6-4.6) K/mcL Monocytes # 0.8 (0.0-1.3) K/mcL Eosinophils # 0.0 (0.0-0.6) K/mcL Basophils # 0.1 (0.0-0.2) K/mcL PT 12.2 H (9.4-12.1) Seconds INR 1.1 APTT 41.8 H (26.0-36.0) Seconds VBG pH (7.32-7.42) pH Units VBG pCO2 (41-51) mmHg VBG pO2 (25-50) mmHg VBG HCO3 (21-27) mEq/L Sodium 137 (136-145) mEq/L Potassium 3.7 (3.5-5.1) mEq/L Chloride 113 H (98-107) mEq/L Carbon Dioxide 18 L (23-29) mEq/L BUN 26 H (6-20) mg/dL Creatinine 3.69 H (0.70-1.30) mg/dL Est GFR ( Amer) 24 L (> 60) Est GFR (Non-Af Amer) 20 L (> 60) BUN/Creatinine Ratio 7 (6-26) Glucose 61 L (70-105) mg/dL Calculated Osmolality 287 (280-300) Lactic Acid (0.5-2.2) mmol/L Calcium 8.1 L (8.6-10.3) mg/dL Total Bilirubin 0.1 L (0.3-1.0) mg/dL Direct Bilirubin 0.0 (0.0-0.2) mg/dL Indirect Bilirubin 0.1 (0.0-1.2) mg/dL AST 37 (13-39) Units/L ALT 20 (7-52) Units/L Alkaline Phosphatase 96 (34-104) Units/L Ammonia (16-53) mcmol/L Troponin I 0.03 (< 0.04) ng/mL Serum Total Protein 6.5 (6.4-8.9) g/dL Albumin 2.2 L (3.5-5.7) g/dL Globulin 4.3 H (2.4-3.5) g/dL Albumin/Globulin Ratio 0.5 L (1.1-2.2) Salicylates (15.0-30.0) mg/dL Acetaminophen (10-20) mcg/mL Ethyl Alcohol (Less than 10) mg/dL 06/08/18 06/08/18 06/08/18 Range/Units 18:50 19:54 19:54 WBC (4.3-11.1) K/mcL RBC (4.19-5.50) M/mcL Hgb (12.9-16.9) g/dL Hct (37.5-50.1) % MCV (83.0-100.0) fL MCH (28.0-33.3) pg MCHC (31.6-35.5) g/dL RDW (11.5-14.5) % Plt Count (140-400) K/mcL MPV (9.4-12.4) fL Immature Gran % (0-4) % Seg Neutrophils % % Lymphocytes % % Monocytes % % Eosinophils % % Basophils % % Neutrophils # (1.6-8.9) K/mcL Lymphocytes # (0.6-4.6) K/mcL Monocytes # (0.0-1.3) K/mcL Eosinophils # (0.0-0.6) K/mcL Basophils # (0.0-0.2) K/mcL PT (9.4-12.1) Seconds INR APTT (26.0-36.0) Seconds VBG pH (7.32-7.42) pH Units VBG pCO2 (41-51) mmHg VBG pO2 (25-50) mmHg VBG HCO3 (21-27) mEq/L Sodium (136-145) mEq/L Potassium (3.5-5.1) mEq/L Chloride (98-107) mEq/L Carbon Dioxide (23-29) mEq/L BUN (6-20) mg/dL Creatinine (0.70-1.30) mg/dL Est GFR ( Amer) (> 60) Est GFR (Non-Af Amer) (> 60) BUN/Creatinine Ratio (6-26) Glucose (70-105) mg/dL Calculated Osmolality (280-300) Lactic Acid 0.4 L (0.5-2.2) mmol/L Calcium (8.6-10.3) mg/dL Total Bilirubin (0.3-1.0) mg/dL Direct Bilirubin (0.0-0.2) mg/dL Indirect Bilirubin (0.0-1.2) mg/dL AST (13-39) Units/L ALT (7-52) Units/L Alkaline Phosphatase (34-104) Units/L Ammonia 42 (16-53) mcmol/L Troponin I (< 0.04) ng/mL Serum Total Protein (6.4-8.9) g/dL Albumin (3.5-5.7) g/dL Globulin (2.4-3.5) g/dL Albumin/Globulin Ratio (1.1-2.2) Salicylates < 2.5 L (15.0-30.0) mg/dL Acetaminophen < 10 L (10-20) mcg/mL Ethyl Alcohol < 10 (Less than 10) mg/dL 10/01/17 Range/Units 20:14 WBC (4.3-11.1) K/mcL RBC (4.19-5.50) M/mcL Hgb (12.9-16.9) g/dL Hct (37.5-50.1) % MCV (83.0-100.0) fL MCH (28.0-33.3) pg MCHC (31.6-35.5) g/dL RDW (11.5-14.5) % Plt Count (140-400) K/mcL MPV (9.4-12.4) fL Immature Gran % (0-4) % Seg Neutrophils % % Lymphocytes % % Monocytes % % Eosinophils % % Basophils % % Neutrophils # (1.6-8.9) K/mcL Lymphocytes # (0.6-4.6) K/mcL Monocytes # (0.0-1.3) K/mcL Eosinophils # (0.0-0.6) K/mcL Basophils # (0.0-0.2) K/mcL PT (9.4-12.1) Seconds INR APTT (26.0-36.0) Seconds VBG pH 7.20 L* (7.32-7.42) pH Units VBG pCO2 48 (41-51) mmHg VBG pO2 48 (25-50) mmHg VBG HCO3 19 L (21-27) mEq/L Sodium (136-145) mEq/L Potassium (3.5-5.1) mEq/L Chloride (98-107) mEq/L Carbon Dioxide (23-29) mEq/L BUN (6-20) mg/dL Creatinine (0.70-1.30) mg/dL Est GFR ( Amer) (> 60) Est GFR (Non-Af Amer) (> 60) BUN/Creatinine Ratio (6-26) Glucose (70-105) mg/dL Calculated Osmolality (280-300) Lactic Acid (0.5-2.2) mmol/L Calcium (8.6-10.3) mg/dL Total Bilirubin (0.3-1.0) mg/dL Direct Bilirubin (0.0-0.2) mg/dL Indirect Bilirubin (0.0-1.2) mg/dL AST (13-39) Units/L ALT (7-52) Units/L Alkaline Phosphatase (34-104) Units/L Ammonia (16-53) mcmol/L Troponin I (< 0.04) ng/mL Serum Total Protein (6.4-8.9) g/dL Albumin (3.5-5.7) g/dL Globulin (2.4-3.5) g/dL Albumin/Globulin Ratio (1.1-2.2) Salicylates (15.0-30.0) mg/dL Acetaminophen (10-20) mcg/mL Ethyl Alcohol (Less than 10) mg/dL - Radiology Data Radiology results reviewed: Yes I reviewed the patient's radiology results. Head CT 10/01/17 18:55 IMPRESSION: No acute intracranial abnormality. D/ / Aldair Islas MD / Aldair Islas MD Interpreting Provider: Aldair Islas MD Chest X-Ray 10/01/17 19:40 IMPRESSION: 1. Right transjugular central venous catheter terminating in the superior vena cava. No pneumothorax. 2. Nonspecific airspace opacities in the right upper lobe. Pneumonia not excluded. D/ / Grady Ashley MD / Grady Ashley MD Interpreting Provider: Grady Ashley MD
--- NOTE | 2017-10-01 19:22 | Emergency Department Note ---
Disposition Clinical Impression: Confusion, Hypoglycemia, Unresponsive episode Disposition: Admitted As Inpatient Referrals: Luis Fernando Lr DO [Primary Care Provider] - Forms: ED Satisfaction Letter, Work/School Release General Adult HPI - General Chief complaint: ED General Medical Stated complaint: Low blood sugar Time Seen by Provider: 10/01/17 18:48 Source: EMS Mode of arrival: EMS Limitations: altered mental status - History of Present Illness Pain Scale: 0 - Related Data Home Medications Medication Instructions Recorded Confirmed Buprenorphine HCl/Naloxone HCl 1 each SL AD 05/26/17 05/26/17 [Suboxone 8 mg-2 mg Sl Film] Previous Rx's Medication Instructions Recorded Amoxicillin/Clavulanate [Augmentin] 875 mg PO BIDWM #20 tablet 05/29/17 Insulin Degludec [Tresiba 100 unit SQ DAILY #5 insuln.pen 05/29/17 Flextouch U-100] amLODIPine [Norvasc] 5 mg PO DAILY #30 tablet 05/29/17 hydrALAZINE [HydrALAZINE] 25 mg PO BID #30 tablet 05/29/17 Allergies Allergy/AdvReac Type Severity Reaction Status Date / Time tramadol Allergy Anaphylaxis Verified 05/26/17 19:19 Constitutional: Reports: weakness. Denies: fever, chills ENT ED: Denies: congestion Cardiovascular: Denies: chest pain Respiratory: Denies: dyspnea Gastrointestinal: Reports: diarrhea. Denies: abdominal pain, nausea, vomiting Musculoskeletal: Denies: back pain Neurological: Reports: confusion Past Medical History - Past Medical History Medical history: Reports: diabetes, GERD, hepatitis, hypertension, other Surgical history: Reports: orthopedic, other (Right below knee amputation-August 2015) Psychiatric history: Reports: anxiety, depression - Social History Smoking Status: Current every day smoker Smokeless Tobacco Status: No Alcohol use: Reports: none Drug use: Reports: marijuana Physical Exam - General Limitations: altered mental status General appearance: alert, appears intoxicated Course - Reevaluation(s) Reevaluation #1: Attestation note I did independently examine and verified the physical examination findings evaluation workup and disposition of this patient. We had independent face-to- face examination and discussion. The patient was seen with the emergency medicine resident Dr. Nicholas Hook I examined this patient and my medical decision-making was reviewed with the Resident Physician/VERSE WRITER/PA. I agree with the documented findings, disposition and treatment plan as described except to the extent set forth below. Briefly: 27-year-old male vascular past pertinent from responsiveness by EMS. Patient is pale has a right BKA with ulcers on his left foot was hypoglycemic found in his bathtub family called he was 20 for glucose he was given glucagon up to 16 and 80 by the time he arrived in the emergency department got 2 doses of intranasal Narcan messed became awake and alert and seemed to be nodding off Fraire questioning he denied using controlled substances narcotics. Patient is getting a central line placed by Dr. Hook patient's core temperature was 94 is getting a Bear hugger patient be worked up for sepsis and/or narcotic overdose and for hypoglycemia. Providing 50 minutes critical care service for this patient. Admission anticipated. Disposition pending Time: 19:20 Vital Signs Temperature 94.8 F L 10/01/17 18:28 Pulse Rate 100 10/01/17 18:28 Respiratory Rate 14 10/01/17 18:28 Blood Pressure 131/76 10/01/17 18:28 O2 Sat by Pulse Oximetry 99 10/01/17 18:28 Temperature 94.8 F L 10/01/17 18:28 Pulse Rate 100 10/01/17 18:28 Respiratory Rate 14 10/01/17 18:28 Blood Pressure 131/76 10/01/17 18:28 O2 Sat by Pulse Oximetry 99 10/01/17 18:28 Oxygen Delivery Oxygen Delivery Room Air
[2017-10-01] MEDS ORDERED: Piperacillin/Tazobactam 3.375 GM in 0.9 % Sodium Chloride Mini Bag 100 ML IVPB ONE (20:11)
[2017-10-01 20:17] LABS: Basophils # 0.1 K/mcL (0.0-0.2); Basophils % 0.4 %; Eosinophils % 0.2 %; Hemoglobin 7.7 g/dL (12.9-16.9); Immature Granulocytes % 0.5 % (0-4); Lymphocytes # 1.4 K/mcL (0.6-4.6); Lymphocytes % 10.7 %; Mean Corpuscular HGB Conc 32.1 g/dL (31.6-35.5); Mean Corpuscular Hemoglobin 26.6 pg (28.0-33.3); Mean Corpuscular Volume 82.8 fL (83.0-100.0); Mean Platelet Volume 11.4 fL (9.4-12.4); Monocytes # 0.8 K/mcL (0.0-1.3); Monocytes % 5.7 %; Neutrophils # 10.9 K/mcL (1.6-8.9); Platelet Count 297 K/mcL (140-400); Red Cell Distribution Width 15.9 % (11.5-14.5); Segmented Neutrophils % 82.5 %
[2017-10-01 20:19] LABS: VBG HCO3 19 mEq/L (21-27); VBG PCO2 48 mmHg (41-51); VBG PO2 48 mmHg (25-50)
[2017-10-01] MEDS ORDERED: 0.9 % Sodium Chloride 1,000 ML IVC ONE (20:25)
[2017-10-01 20:30] LABS: INR 1.1; Prothrombin Time 12.2 Seconds (9.4-12.1)
[2017-10-01 20:32] LABS: Activated Partial Thrombo Time 41.8 Seconds (26.0-36.0)
[2017-10-01 20:34] LABS: Acetaminophen < 10 mcg/mL (10-20); Ethanol < 10 mg/dL (Less than 10); Salicylate < 2.5 mg/dL (15.0-30.0)
[2017-10-01 20:37] LABS: Troponin I 0.03 ng/mL (< 0.04)
[2017-10-01 20:38] LABS: Albumin 2.2 g/dL (3.5-5.7); Albumin/Globulin Ratio 0.5 (1.1-2.2); Bilirubin,Indirect 0.1 mg/dL (0.0-1.2); Bilirubin,Total 0.1 mg/dL (0.3-1.0); Calcium 8.1 mg/dL (8.6-10.3); Globulin 4.3 g/dL (2.4-3.5); Potassium 3.7 mEq/L (3.5-5.1); Total Protein 6.5 g/dL (6.4-8.9)
[2017-10-01] MEDS ORDERED: *HR* Dextrose 50 % in Water (Syg) 50 ML SYRINGE ONE (20:41)
[2017-10-01 20:50] LABS: Bilirubin,Urine Negative (Negative); Blood,Urine Moderate (Negative); Clarity,Urine Clear (Clear); Color,Urine Yellow (Yellow); Glucose,Urine (UA) Normal (Normal); Ketones,Urine Negative (Negative); Leukocyte Esterase,Urine Negative (Negative); Nitrite,Urine Negative (Negative); PH,Urine 6.5 pH Units (5.0-8.0); Protein,Urine >=300 mg/dL (Neg-Trace); Specific Gravity,Urine 1.025 (1.010-1.025); Urobilinogen,Urine Normal (Normal)
[2017-10-01 20:57] LABS: Bacteria,Urine Moderate per hpf (None-Few); Yeast,Urine Moderate per hpf (None Seen)
[2017-10-01] MEDS: D5% in 0.45% NACL 1,000 ML IVC SCH (20:58)
[2017-10-01 20:59] LABS: Amorphous Sediment,Urine Few (Few); WBC,Urine 50-100 per hpf (0-3)
[2017-10-01 21:02] LABS: Amphetamine Screen,Urine Negative ng/mL (Cutoff=1000); Barbiturate Screen,Urine Negative ng/mL (Cutoff=200); Benzodiazepines Screen,Urine Negative ng/mL (Cutoff=200); Cannabinoid Screen,Urine Negative ng/mL (Cutoff = 50); Cocaine Screen,Urine Negative ng/mL (Cutoff= 300); Opiate Screen,Urine Negative ng/mL (Cutoff=300); Phencyclidine Screen,Urine Negative ng/mL (Cutoff=25)
--- NOTE | 2017-10-01 21:50 | Event Note ---
Date of Encounter: 10/02/17 Time of Encounter: 21:39 Patient was seen and examined. I agree with the H&P as written by the Resident physician. Briefly, patient is 27 yo m with history of noncompliance, DM on insulin, CKD3, anemia of chronic disease, right BKA, IV drug abuse who is here by EMS after his mother called EMS as he was unresponsive in the bath tub soiled in stool. Glucose reportedly in the 20s. Given glucagon and IV dextrose. Mental status improved somewhat. Narcan also given with minimal change in mental status. Labs in the ED showed WBC 13.2, hgb 7.7, creatinine 3.69 which is above his baseline , k 3.7, Na 137, lactic acid .4, normal LFTs, VBG with PH 7.20, UDS negative. tylenol level <10, salicylate <2.5. CT head negative. CXR showed possible infiltrates. Patient is hypothermic and tachycardic upon presentation. Given vancomycin and zosyn and IV fluids in the ED and started on dextrose drip with his glucose jumping up to the high 100s. I know this patient from a previous admission when he left AMA. Right IJ placed due to difficult access Patient is lethargic. wakes up but is not able to answer appropriately Tachycardic, S1, S2, no m/r/g diminished. coarse breath sounds +BS, NT, ND no edema on left LE, Right BKA noted with a couple of ulcerations pupils equal and reactive. Admit to hospitalist for acute encephalopathy and severe sepsis Treat for pneumonia and possible right LE cellulitis Keep on vanco/zosyn ?? aspiration ?? check C. Diff f/u on cultures Will place on IV NS for now and evaluate for further need of dextrose drip during the night. Accucheks q2hrs tonight low dose sliding scale check ABG Avoid nephrotoxins
--- NOTE | 2017-10-01 21:59 | Internal Med History&Physical ---
Date of Encounter: 10/01/17 Time of Encounter: 09:35 Internal Medicine - H&P: HPI Chief complaint: AMS Admitted From: Home Plans for Post Hospital Care: Home History of present illness: Mr. Anders is a 27 year old male with a past medical history of diabetes type 1 , right below-knee amputation, hepatitis C, hypertension who presented to the ED for altered mental status and hypoglycemia. Patient states that he does not remember what he was doing today before EMS came to pick him up at his house. He is unsure who even called EMS. When EMS arrived, they found him in the bathtub with stool all over him. They checked his glucose and it was 20. Patient was given Narcan and glucagon which increases glucose up to the 70s. Upon arrival to the ED patient's glucose was 86. Acute was tachycardic and hypothermic with a temperature of 94.6. In the ED he was given 1 amp of D5 and started on IV D5 half-normal saline drip. Right IJ placed due to difficult access. Two doses of Narcan, Zosyn, and vancomycin were given. Labs showed a leukocytosis of 13.2, anemia with a hemoglobin of 7.7, creatinine of 3.69 slightly above baseline, lactic acid= 0.4, and a VBG of 7.20, CO2= 48, and a CO3 = 19. Chest x-ray showed right upper lobe opacities and head CT was negative. Patient has remained sleepy but arousable and is A&O 3. Glucose in the ED and remained above 100. Patient was admitted to the floor for hypoglycemia and severe sepsis 2/2 to ulcers vs. CAP vs. gastroenteritis. ROS: Patient denies cough, sputum, nasal congestion, nausea, vomiting, chest pain, and diarrhea. Past Med Surg Social Fam HX - Past Medical History Medical history: diabetes, GERD, hepatitis, hypertension, other Additional medical history: IV DRUG USE Psychiatric history: anxiety, depression - Past Surgical History Surgical History: orthopedic, other (Right below knee amputation-August 2015) Additional surgical history: Bernadette CALVO 08/2015 - Social History Smoking Status: Current every day smoker Smokeless Tobacco Status: No Alcohol use: none Drug use: marijuana - Family History Grandmother Family Member Ethnicity: Non- Living Status: Still Living Hx Family Cardiac Disorders: No Hx Family Endocrine Disorder: Yes (diabetes) Mother Family Member Ethnicity: Non- Living Status: Still Living Hx Family Cardiac Disorders: Yes (hypertension) Hx Family Respiratory Disorders: No Hx Family Cancer: No Hx Family GI Disorders: No Hx Family Endocrine Disorder: No Hx Family Neuromuscular Disorders: No Hx Family Neurologic Disorders: No Hx Family HEENT Disorders: No Hx Family Autoimmune Disorders: No Internal Medicine - H&P: Meds Unable To Obtain [Unable to Obtain] 10/01/17 [History] 3 Allergy/AdvReac Type Severity Reaction Status Date / Time tramadol Allergy Anaphylaxis Verified 05/26/17 19:19 All Systems PM: A 10-system review of systems was performed and is negative for pertinent findings except as documented above in the HPI. - Constitutional Vitals: Temp Pulse Resp BP Pulse Ox 94.8 F L 91 18 195/132 98 10/01/17 18:28 10/01/17 21:12 10/01/17 21:12 10/01/17 21:12 10/01/17 21:14 Exam: Constitutional: sleepy but able to be aroused, A&O x3 Head: Normocephalic, dried blood at orifice of left nostril, multiple abrasions / ulcers on face Heart: Normal, regular rate and rhythm, no murmurs Lungs: diminished breath sounds bilaterally, no wheezing, rhonchi, or rales Abdomen: hyperactive bowel sounds, Soft, nondistended,non-tender and no masses palpable, no guarding or rigidity. Extremities: right BKA , left LE with edema, bilateral extremities with multiple ulcers, No cyanosis Skin: multiple ulcers present all over body with highest stage being stage III, Skin warm and dry, no jaundice Neurologic: no focal deficits, strength within normal limits in all extremities Psych: Cooperative with exam, poor eye contact, speech clear, Internal Med - H&P Results - Labs CBC & Chem 7: 10/01/17 18:49 10/01/17 18:49 Labs: Short CBC 10/01/17 Range/Units 18:49 WBC 13.2 H (4.3-11.1) K/mcL Hgb 7.7 L (12.9-16.9) g/dL Hct 24.0 L (37.5-50.1) % Plt Count 297 (140-400) K/mcL Neutrophils # 10.9 H (1.6-8.9) K/mcL BMP 10/01/17 18:49 Sodium 137 Potassium 3.7 Chloride 113 H Carbon Dioxide 18 L BUN 26 H Creatinine 3.69 H Glucose 61 L Calcium 8.1 L Cardiac Enzymes 10/01/17 Range/Units 18:49 Troponin I 0.03 (< 0.04) ng/mL Liver Function 10/01/17 Range/Units 18:49 Total Bilirubin 0.1 L (0.3-1.0) mg/dL Direct Bilirubin 0.0 (0.0-0.2) mg/dL AST 37 (13-39) Units/L ALT 20 (7-52) Units/L Alkaline Phosphatase 96 (34-104) Units/L Albumin 2.2 L (3.5-5.7) g/dL Urine 10/01/17 Range/Units 20:43 Urine Color Yellow (Yellow) Urine Clarity Clear (Clear) Urine pH 6.5 (5.0-8.0) pH Units Ur Specific [place] 1.025 (1.010-1.025) Urine Protein >=300 H (Neg-Trace) mg/dL Urine Glucose (UA) Normal (Normal) mg/dL - ABG Interpretation ABG results: 10/01/17 20:14 VBG pH 7.20 L* VBG pCO2 48 VBG pO2 48 VBG HCO3 19 L - Impressions ITS Impressions Head CT 10/01/17 18:55 IMPRESSION: No acute intracranial abnormality. D/ / Aldair Islas MD / Aldair Islas MD Interpreting Provider: Aldair Islas MD Chest X-Ray 10/01/17 19:40 IMPRESSION: 1. Right transjugular central venous catheter terminating in the superior vena cava. No pneumothorax. 2. Nonspecific airspace opacities in the right upper lobe. Pneumonia not excluded. D/ / Grady Ashley MD / Grady Ashley MD Interpreting Provider: Grady Ashley MD - Assessment and plan (1) Severe sepsis Current Visit: No Status: Acute Assessment and plan: Altered mental status with leukocytosis, hypothermia, tachycardia, RORO and multiple infection sources with numerous ulcers on skin and community-acquired pneumonia, and diarrhea. Lactic acid= 0.4. Plan: - continue D5 1/2NS at 125ml/hr - blood, sputum, GI panel, and respiratory panel pending - ABG pending (2) Hypoglycemia Current Visit: Yes Status: Acute Assessment and plan: Likely secondary to severe sepsis and noncompliant diabetic. Plan: - d5 1/2 NS at 125ml/hr - Q2H glucose checks - hypoglycemia protocol - low sliding scale Q6h - Diet: NPO (3) Type 1 diabetes mellitus Current Visit: Yes Status: Chronic Assessment and plan: Noncompliant DM1 with chronic kidney disease who stated that he does not take any medications. See plan above. Qualifiers: Diabetes mellitus complication status: with hypoglycemia Diabetes mellitus complication detail: without coma Qualified Code(s): E10.649 - Type 1 diabetes mellitus with hypoglycemia without coma (4) CAP (community acquired pneumonia) Current Visit: Yes Status: Acute Assessment and plan: Chest x-ray showed right upper lobe opacities. WBC= 13.2. Patient is at risk for pneuodomonas and MRSA due to diabetes and multiple ulcers will start Vanco and Zosyn. Plan: - Antibiotics: Vancomycin and Zosyn ( day 1) - Strep/ legionella pending - blood/sputum culture pending - resp panel pending Qualifiers: Laterality: right Lung location: upper lobe of lung Qualified Code(s): J18.1 - Lobar pneumonia, unspecified organism (5) Diarrhea Current Visit: Yes Status: Acute Assessment and plan: ED reported patient covered in stool that smelled like c diff. Hyperactive bowel sounds. Plan: - GI panel pending - continue fluids Qualifiers: Diarrhea type: presumed infectious Qualified Code(s): R19.7 - Diarrhea, unspecified (6) RORO (acute kidney injury) Current Visit: Yes Status: Acute Assessment and plan: Creatinine 3.69 (previous 3.12). RORO with CKD. Will continue fluids and monitor creatinine. (7) Skin ulcer of multiple sites Current Visit: Yes Status: Acute Assessment and plan: Multiple ulcerations all over body with the worst at the distal end of his right nub. Deepest ulcers stage III. Continue Vanco and Zosyn. Consulted wound care. Qualifiers: Non-pressure ulcer stage: with fat layer exposed Qualified Code(s): L98.492 - Non-pressure chronic ulcer of skin of other sites with fat layer exposed (8) HTN (hypertension) Current Visit: Yes Status: Acute Assessment and plan: BP normal upon arrival then 195/[address] order for Hydralazine 10mg prn Q6H. Qualifiers: Hypertension type: secondary to other renal disorders Qualified Code(s): I15.1 - Hypertension secondary to other renal disorders; N28.89 - Other specified disorders of kidney and ureter (9) Anemia in chronic kidney disease Current Visit: Yes Status: Acute Assessment and plan: Hemoglobin 7.7 slightly decreased from prior but has chronic anemia 2/2 to CKD. Will assess stool guaiac. No obvious source of bleeding. Qualifiers: Chronic kidney disease stage: unspecified stage Qualified Code(s): N18.9 - Chronic kidney disease, unspecified; D63.1 - Anemia in chronic kidney disease (10) DVT prophylaxis Current Visit: Yes Status: Acute Assessment and plan: Heparin SQ - Time Spent With Patient Total time spent is greater than 50% in coordination of care (as documented) at patient's floor/unit and/or counseling patient:
[2017-10-01] MEDS ORDERED: Acetaminophen 325 MG TABLET PO PRN (22:15)
[2017-10-01] MEDS ORDERED: Naloxone 0.4 MG/ML INJ IVP PRN (22:15)
[2017-10-01] MEDS ORDERED: D5% in Water 1,000 ML IVC PRN (22:17)
[2017-10-01] MEDS ORDERED: Dextrose Gel 15 GM/37.5 ML TUBE PO PRN ×2 (22:17)
[2017-10-01] MEDS ORDERED: *HR* Dextrose 50 % in Water (Syg) 50 ML SYRINGE IVP PRN (22:17)
[2017-10-01] MEDS ORDERED: Ondansetron 4 MG/2 ML VIAL IVP PRN (22:24)
[2017-10-02 01:17] LABS: ABG Base Excess -8 mEq/L (-2 to 3); ABG HCO3 18 mEq/L (21-27); ABG Oxygen Saturation 98 % (95-98); ABG PCO2 38 mmHg (35-45); ABG PH 7.28 pH Units (7.32-7.45); ABG PO2 113 mmHg (85-104); ABG TCO2 19 mEq/L (20-26)
[2017-10-02] MEDS ORDERED: Piperacillin/Tazobactam 3.375 GM in 0.9 % Sodium Chloride Mini Bag 100 ML IVPB SCH (02:00)
[2017-10-02] MEDS: D5% in 0.45% NACL 1,000 ML IVC SCH (02:05)
[2017-10-02] MEDS: Insulin LISPRO 300 UNITS/3 ML VIAL SQ SCH ×4 (05:30→17:13)
[2017-10-02] MEDS: *HR* Heparin 5,000 UNIT/ML VIAL SQ SCH ×3 (05:30→17:00)
[2017-10-02 06:57] LABS: Hematocrit 23.4 % (37.5-50.1); Hemoglobin 7.5 g/dL (12.9-16.9); Mean Corpuscular HGB Conc 32.1 g/dL (31.6-35.5); Mean Corpuscular Hemoglobin 26.3 pg (28.0-33.3); Mean Corpuscular Volume 82.1 fL (83.0-100.0); Mean Platelet Volume 11.2 fL (9.4-12.4); Platelet Count 300 K/mcL (140-400); Red Blood Count 2.85 M/mcL (4.19-5.50); Red Cell Distribution Width 15.9 % (11.5-14.5)
[2017-10-02 07:18] LABS: Albumin 1.8 g/dL (3.5-5.7); Albumin/Globulin Ratio 0.5 (1.1-2.2); Bilirubin,Total 0.2 mg/dL (0.3-1.0); Calcium 7.6 mg/dL (8.6-10.3); Globulin 3.8 g/dL (2.4-3.5); Magnesium 1.3 mg/dL (1.6-2.6); Phosphorous 4.6 mg/dL (2.7-4.5); Potassium 3.5 mEq/L (3.5-5.1); Total Protein 5.6 g/dL (6.4-8.9)
--- NOTE | 2017-10-02 09:35 | Internal Med Progress Note ---
Date of Encounter: 10/02/17 Time of Encounter: 09:35 - Assessment and plan (1) Severe sepsis Current Visit: Yes Status: Acute Assessment and plan: Presented with hypoglycemia, RORO on CKD, encephalopathy, leukocytosis, RUL PNA He is afebrile, but hypothermic shyanne rrival Blood pressure WNL lactate normal Cultures pending Continue Vanco and Zosyn (2) Type 1 diabetes mellitus Current Visit: Yes Status: Chronic Assessment and plan: Noncompliant DM1 A1C >14 05/2017 Check A1C with maribellmlmarlen patient can have ADA diet FS ACHS Sliding scale only for now Qualifiers: Diabetes mellitus complication status: with hypoglycemia Diabetes mellitus complication detail: without coma Qualified Code(s): E10.649 - Type 1 diabetes mellitus with hypoglycemia without coma (3) Hypoglycemia Current Visit: Yes Status: Acute Assessment and plan: Likely secondary to severe sepsis and noncompliant diabetic. Continue D5 Continue to monitor FS q4-6h till stable Feed patient (4) Diarrhea Current Visit: Yes Status: Acute Assessment and plan: ED reported patient covered in stool that smelled like c diff. Hyperactive bowel sounds. Stool work up pending Qualifiers: Diarrhea type: presumed infectious Qualified Code(s): R19.7 - Diarrhea, unspecified (5) CAP (community acquired pneumonia) Current Visit: Yes Status: Acute Assessment and plan: Chest x-ray showed right upper lobe opacities. WBC= 13.2. Patient is at risk for pneuodomonas and MRSA due to diabetes and multiple ulcers will start Vanco and Zosyn. Continue Vanco and Zosyn De-escalate with negative cultures Blood, sputum , urine legonella and strep Ag pending Qualifiers: Laterality: right Lung location: upper lobe of lung Qualified Code(s): J18.1 - Lobar pneumonia, unspecified organism (6) RORO (acute kidney injury) Current Visit: Yes Status: Acute Assessment and plan: Creatinine 3.69 (previous 3.12). RORO with CKD. patient has facial edema and LE edema Cr is improving slowly Gentle hydration only, encourage liberal fluid intake Continue to monitor Avoid nephrotoxins Nephrology eval (7) Skin ulcer of multiple sites Current Visit: Yes Status: Acute Assessment and plan: Multiple ulcerations all over body with the worst at the distal end of his right nub. Deepest ulcers stage III. Continue Vanco and Zosyn. Consulted wound care. Qualifiers: Non-pressure ulcer stage: with fat layer exposed Qualified Code(s): L98.492 - Non-pressure chronic ulcer of skin of other sites with fat layer exposed (8) HTN (hypertension) Current Visit: Yes Status: Acute Assessment and plan: Uncontrolled HTN Start amlodipine 10mg Continue hydralazine prn Qualifiers: Hypertension type: secondary to other renal disorders Qualified Code(s): I15.1 - Hypertension secondary to other renal disorders; N28.89 - Other specified disorders of kidney and ureter (9) DVT prophylaxis Current Visit: Yes Status: Acute Assessment and plan: Heparin SQ (10) Anemia in chronic kidney disease Current Visit: Yes Status: Chronic Assessment and plan: Hemoglobin 7.7 slightly decreased from prior but has chronic anemia 2/2 to CKD. Will assess stool guaiac. No obvious source of bleeding. Qualifiers: Chronic kidney disease stage: unspecified stage Qualified Code(s): N18.9 - Chronic kidney disease, unspecified; D63.1 - Anemia in chronic kidney disease - Time Spent With Patient Total time spent is greater than 50% in coordination of care (as documented) at patient's floor/unit and/or counseling patient: - Subjective Interval history: 27 M with DM1, s/p R BKA, Hep C, HTN He is seen at the bedside Awake,alert, edematous He does not remember how he got to the hospital , last memory was he was in the bath tub 10/01 He was found hypoglycmic, BS 20s He has multiple ulcers on his body He is also edematous with dried blood on his nose He is protecting his airway and is able to be fed - Constitutional Vitals: Temp Pulse Resp BP Pulse Ox 98.0 F 89 17 132/79 99 10/02/17 07:39 10/02/17 07:39 10/02/17 07:39 10/02/17 07:39 10/02/17 07:39 Awake, but lethargic Oriented X3 Follows commands, normal speech Crusted dried blood in nostril Facial edema Diminished breath sounds bilaterally,transmitted, coarse, no wheezing, no definite rhonchi Abdomen is soft and nott agustín Left LE 1+ edema R s/p BKS, sump with a single ulcer,no surrounding erythema, no discharge Skin with multiple ulcers in different stages of healing Internal Medicine: Result - Labs CBC & Chem 7: 10/02/17 06:48 10/02/17 06:48 Labs: Short CBC 10/02/17 Range/Units 06:48 WBC 10.3 (4.3-11.1) K/mcL Hgb 7.5 L (12.9-16.9) g/dL Hct 23.4 L (37.5-50.1) % Plt Count 300 (140-400) K/mcL BMP 10/02/17 06:48 Sodium 136 Potassium 3.5 Chloride 115 H Carbon Dioxide 17 L BUN 26 H Creatinine 3.23 H Glucose 88 Calcium 7.6 L Liver Function 10/02/17 Range/Units 06:48 Total Bilirubin 0.2 L (0.3-1.0) mg/dL AST 27 (13-39) Units/L ALT 15 (7-52) Units/L Alkaline Phosphatase 80 (34-104) Units/L Albumin 1.8 L (3.5-5.7) g/dL - ABG Interpretation ABG results: ABG ABG pH 7.28 pH Units (7.32-7.45) L 10/02/17 01:14 ABG pCO2 38 mmHg (35-45) 10/02/17 01:14 ABG pO2 113 mmHg (85-104) H 10/02/17 01:14 ABG O2 Saturation 98 % (95-98) 10/02/17 01:14 PT/INR, D-dimer PT 12.2 Seconds (9.4-12.1) H 10/01/17 18:49 Consult Discharge Plan - Plan Referrals: Luis Fernando Lr DO [Primary Care Provider] -
[2017-10-02] MEDS: Piperacillin/Tazobactam 3.375 GM in 0.9 % Sodium Chloride Mini Bag 100 ML IVPB SCH ×2 (11:31→17:00)
[2017-10-02 12:50] LABS: Adenovirus Not Detected (Not Detect); Bordetella Pertussis Not Detected (Not Detect); Chlamydophila pneumoniae Not Detected (Not Detect); Coronavirus 229E Not Detected (Not Detect); Coronavirus HKU1 Not Detected (Not Detect); Coronavirus NL63 Not Detected (Not Detect); Coronavirus OC43 Not Detected (Not Detect); Human Metapneumovirus Not Detected (Not Detect); Human Rhinovirus/Enterovirus Not Detected (Not Detect); Influenza A Subtype 2009 H1 Not Detected (Not Detect); Influenza A Untypeable Not Detected (Not Detect); Influenza B Not Detected (Not Detect); Mycoplasma pneumoniae Not Detected (Not Detect); Parainfluenza Virus 1 Not Detected (Not Detect); Parainfluenza Virus 2 Not Detected (Not Detect); Parainfluenza Virus 3 Not Detected (Not Detect); Parainfluenza Virus 4 Not Detected (Not Detect); Respiratory Syncytial Virus Not Detected (Not Detect)
[2017-10-02] MEDS: amLODIPine 5 MG TABLET PO SCH (17:00)
[2017-10-02 20:47] LABS: Adenovirus F 40/41 PCR Not detected (Not detect); Astrovirus PCR Not detected (Not detect); C.difficile Toxin A/B by PCR Not detected (Not detect); Campylobacter by PCR Not detected (Not detect); Cryptosporidium by PCR Not detected (Not detect); Cyclospora cayetanensis PCR Not detected (Not detect); E. coli O157 by PCR Not detected (Not detect); Entamoeba histolytica PCR Not detected (Not detect); Enteroaggregative E.coli(EAEC) Not detected (Not detect); Enteropathogenic E.coli(EPEC) Not detected (Not detect); Enterotoxigenic E.coli (ETEC) Not detected (Not detect); Giardia lamblia PCR Not detected (Not detect); Norovirus GI/GII PCR Not detected (Not detect); Plesiomonas shigelloides PCR Not detected (Not detect); Rotavirus A PCR Not detected (Not detect); Salmonella PCR Not detected (Not detect); Sapovirus PCR Not detected (Not detect); Shig/EnteroinvasiveE coli EIEC Not detected (Not detect); Shigalike tox-prod E coli STEC Not detected (Not detect); Vibrio PCR Not detected (Not detect); Vibrio cholerae PCR Not detected (Not detect); Yersinia enterocolitica PCR Not detected (Not detect)
[2017-10-03] MEDS: Insulin LISPRO 300 UNITS/3 ML VIAL SQ SCH ×2 (00:07→06:04)
[2017-10-03] MEDS: Piperacillin/Tazobactam 3.375 GM in 0.9 % Sodium Chloride Mini Bag 100 ML IVPB SCH (01:41)
[2017-10-03] MEDS: *HR* Heparin 5,000 UNIT/ML VIAL SQ SCH (06:04)
[2017-10-03 06:24] LABS: Basophils # 0.1 K/mcL (0.0-0.2); Eosinophils # 0.4 K/mcL (0.0-0.6); Eosinophils % 4.2 %; Hemoglobin 7.1 g/dL (12.9-16.9); Immature Granulocytes % 0.3 % (0-4); Lymphocytes # 2.6 K/mcL (0.6-4.6); Lymphocytes % 27.8 %; Mean Corpuscular HGB Conc 30.9 g/dL (31.6-35.5); Mean Corpuscular Hemoglobin 25.7 pg (28.0-33.3); Mean Corpuscular Volume 83.3 fL (83.0-100.0); Mean Platelet Volume 11.3 fL (9.4-12.4); Monocytes # 0.7 K/mcL (0.0-1.3); Monocytes % 7.3 %; Neutrophils # 5.6 K/mcL (1.6-8.9); Platelet Count 317 K/mcL (140-400); Red Blood Count 2.76 M/mcL (4.19-5.50); Red Cell Distribution Width 16.5 % (11.5-14.5); Segmented Neutrophils % 59.4 %
[2017-10-03 06:40] LABS: Calcium 7.4 mg/dL (8.6-10.3); Potassium 3.6 mEq/L (3.5-5.1)
[2017-10-03 07:45] VITALS: BP 138/84
[2017-10-03 07:46] LABS: Estimated Average Glucose 217 mg/dl; Hemoglobin A1C 9.2 %
[2017-10-03] MEDS: amLODIPine 5 MG TABLET PO SCH (08:03)
--- NOTE | 2017-10-03 12:16 | Discharge Summary ---
- NOTES TO OUTPATIENT PROVIDER Notes to Outpatient Provider: Discussed staying to finish monitoring and treatment. Left AMA. - Follow-up CBC for infection and hemoglobin. - Follow- up BMP for renal function. Did not allow a Nephrology consult. - Cultures pending at timeofdischarge. Orders not resulted at time of discharge: Pending orders 10/01/17 23:17 Culture,Blood [BC] Routine 10/04/17 04:00 Vancomycin,Random AM 0400 Date of Encounter: 10/03/17 Time of Encounter: 12:14 - Discharge Diagnosis (1) Severe sepsis Priority: Primary Status: Acute Assessment and Plan: Presented with hypoglycemia, RORO on CKD, encephalopathy, leukocytosis, RUL PNA He is afebrile, but hypothermic shyanne rrival Blood pressure WNL lactate normal Cultures pending Continue Vanco and Zosyn He is leaving AMA despite explaining risks of leaving including septic shock, multiorgan failure and . (2) Type 1 diabetes mellitus Priority: Secondary Status: Chronic Qualifiers: Diabetes mellitus complication status: with hypoglycemia Diabetes mellitus complication detail: without coma Qualified Code(s): E10.649 - Type 1 diabetes mellitus with hypoglycemia without coma (3) Hypoglycemia Priority: Secondary Status: Acute (4) Diarrhea Priority: Secondary Status: Acute Qualifiers: Diarrhea type: presumed infectious Qualified Code(s): R19.7 - Diarrhea, unspecified (5) CAP (community acquired pneumonia) Priority: Secondary Status: Acute Qualifiers: Laterality: right Lung location: upper lobe of lung Qualified Code(s): J18.1 - Lobar pneumonia, unspecified organism (6) RORO (acute kidney injury) Priority: Secondary Status: Acute (7) Skin ulcer of multiple sites Priority: Secondary Status: Acute Qualifiers: Non-pressure ulcer stage: with fat layer exposed Qualified Code(s): L98.492 - Non-pressure chronic ulcer of skin of other sites with fat layer exposed (8) HTN (hypertension) Priority: Secondary Status: Acute Qualifiers: Hypertension type: essential hypertension Qualified Code(s): I10 - Essential (primary) hypertension (9) DVT prophylaxis Priority: Secondary Status: Acute (10) Anemia in chronic kidney disease Priority: Secondary Status: Chronic Qualifiers: Chronic kidney disease stage: unspecified stage Qualified Code(s): N18.9 - Chronic kidney disease, unspecified; D63.1 - Anemia in chronic kidney disease Hospital course: Mr. Anders is a 27 year old male with a past medical history of diabetes type 1 , right below-knee amputation, hepatitis C, hypertension who presented to the ED for altered mental status and hypoglycemia. Patient states that he does not remember what he was doing today before EMS came to pick him up at his house. He is unsure who even called EMS. When EMS arrived, they found him in the bathtub with stool all over him. They checked his glucose and it was 20. Patient was given Narcan and glucagon which increases glucose up to the 70s. Upon arrival to the ED patient's glucose was 86. Acute was tachycardic and hypothermic with a temperature of 94.6. In the ED he was given 1 amp of D5 and started on IV D5 half-normal saline drip. Right IJ placed due to difficult access. Two doses of Narcan, Zosyn, and vancomycin were given. Labs showed a leukocytosis of 13.2, anemia with a hemoglobin of 7.7, creatinine of 3.69 slightly above baseline, lactic acid= 0.4, and a VBG of 7.20, CO2= 48, and a CO3 = 19. Chest x-ray showed right upper lobe opacities and head CT was negative. Patient has remained sleepy but arousable and is A&O 3. Glucose in the ED and remained above 100. Patient was admitted to the floor for hypoglycemia and severe sepsis 2/2 to ulcers vs. CAP vs. gastroenteritis. He had blood cultures obtained and started on emperic antibiotic therapy vancomycin and Zosyn. Respiratory panel and GI panel were negative. Patient blood cultures pending. Leukocytosis and vitals did improve. Tachycardia resolved and BP became within acceptable limits. However patient did have hemoglobin decrease from 7.7 on admission to 7.1. He was pale appearing. Further workup and treatment were warranted but patient wanted to leave AMA. We had extensive discussion of risks leaving early, including septic shock, worsening anemia causing cardioresp issues, worsening renal failure, . Patient stated he did not care and still decided to leave AMA. At this time he did show decision making capacity. He was discharged home. Blood cultures are pending. I will send patient home with script for Doxycycline to cover pneumonia and cellulitis incase there is skin infection developing as well. I asked he gets a repeat BMP and CBC in one day. A script was given for this. - Time Spent with Patient Total time spent providing and/or coordinating discharge services: Greater than 30 minutes - Discharge Medications Home Medications: Pharmacy Note 0 mg PO AD 10/02/17 [History] Doxycycline 100 mg PO BID #14 capsule 10/03/17 [Rx] Allergies/Adverse Reactions: 3 Allergy/AdvReac Type Severity Reaction Status Date / Time tramadol Allergy Swelling Verified 10/02/17 11:33 of Lip/Tongue/Throat Date of admission: 10/01/17 23:03 Primary care physician: Luis Fernando Esquivel DO Discharging clinician: Nikki Charles - Constitutional Vitals: Temp Pulse Resp BP Pulse Ox 97.6 F 83 16 138/84 99 10/03/17 07:43 10/03/17 07:43 10/03/17 07:43 10/03/17 07:43 10/03/17 07:43 Exam: Constitutional: A&O x3, irritable Head: Normocephalic, multiple abrasions/ ulcers on face Eyes: conjunctival pallor, no scleral icterus Heart: Normal, regular rate and rhythm, no murmurs Lungs: CTAB Abdomen: Soft, NT/ND Extremities: right BKA , left LE with edema, bilateral extremities with multiple ulcer Skin: multiple ulcers present all over body with highest stage being stage III Neurologic: no focal deficits, strength within normal limits in all extremities Psych: Cooperative with exam, flat affect - Patient Status Disposition: Home, Self-Care Condition: Undetermined Functional capacity at discharge: uses cane/walker Overall status at discharge: patient is not back to baseline - Discharge Instructions Follow Up With: Luis Fernando Lr DO [Primary Care Provider] - Additional Instructions: Recommend returning to hospital [facility] for treatment. - Diet and Activity Activity: increase activity as tolerated Diet: diabetic diet
[2017-10-03] MEDS ORDERED: Aminoglycoside Consult 1 EACH MC ONE (13:39)
--- NOTE | 2017-10-04 08:06 | Electrocardiograph Report ---
[place] [id number] Test Date: 2017-10-01 Pat Name: Kieran Anders Department: 104 Room: [facility] Gender: M [place] [employer]ner: MAYO : 1990 Requested By: Nicholas Hook Order Number: [id number] Reading MD: Titus Carranza Measurements Intervals [place] Rate: 93 P: 59 IA: 172 QRS: 44 QRSD: 100 T: 60 QT: 359 QTc: 410 Interpretive Statements SINUS RHYTHM Electronically Signed On 10-04-2017 8:04:57 EDT by Titus Carranza
== END 2017-10-03 13:40 | disposition left against medical advice (07) | DRG 720 ==
LOC: EMEROO 18:25 → 2ANU 23:03
PROVIDERS: ADMIT Internal Medicine; ATTEND Internal Medicine

== ENCOUNTER 2018-09-28 19:13 | Inpatient (IN) ==
[2018-09-28] MEDS ORDERED: Furosemide 40 MG/4 ML VIAL IVP ONE (20:47)
[2018-09-28] MEDS ORDERED: Acetaminophen 325 MG TABLET PO PRN (21:05)
[2018-09-28] MEDS ORDERED: *HR* Dextrose 50 % in Water (Syg) 50 ML SYRINGE IVP PRN (21:05)
[2018-09-28] MEDS ORDERED: Dextrose Gel 15 GM/37.5 ML TUBE PO PRN ×2 (21:05)
[2018-09-28] MEDS ORDERED: Naloxone 0.4 MG/ML INJ IVP PRN (21:05)
[2018-09-28] MEDS ORDERED: Insulin LISPRO 300 UNITS/3 ML VIAL SQ SCH (21:15)
--- NOTE | 2018-09-28 21:23 | Internal Med History&Physical ---
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 It is stated that he was [facility] to penitentiary yesterday and they are trying to get him medically evaluated due to his complaint of swelling over the past few days. He denied having fever or pain. There were no wounds and intensified on the left leg and no inflammatory signs present. A CT scan was done which showed diffuse subcutaneous edema but no inflammatory signs or and signs for abscess. He also had a duplex done which ruled out DVT. Incidentally on labs he was found to have a potassium of 6.9 and an elevation in his creatinine from his baseline. He was given fluids and temporizing measures for hyperkalemia and center for further care. Due to difficulty with IV access a right femoral line was inserted prior to his transfer. On arrival here he offers no complaints other than the new onset swelling of his left leg. Vitals: Reviewed General: Well-developed white male lying in bed in no acute distress. Skin: Warm and dry. HEENT: Dry mucous membranes. + conjunctivae pallor. Neck: No lymphadenopathy. No JVD. No carotid bruits. No palpable thyroid. Chest: Normal thoracic expansion. Normal breath sounds. Clear to auscultation. Heart: Normal S1 & S2; rhythmic. No rubs or murmurs. Abdomen: Non-distended, soft and non-tender to palpation. No peritoneal reaction. Extremities: Left lower leg is circumferentially swollen but nontender to palpation and nonerythematous with no focal lesions. Scaly dry skin is present with a slight macular rash. Right leg stump is noted and he has a 3 cm ulcer on the ventral aspect with slight purulence but no foul smell. Neurological: Awake, alert and oriented to person, place and time. No focal deficits. Psych: Affect appropriate. Assessment/Plan 1. Hyperkalemia: Likely secondary to progression of his underlying kidney disease and poor management. Temporizing measures have been instituted. Will monitor him on telemetry and continue to trend levels. 2. Acute on chronic kidney disease: Seemingly secondary to dehydration perhaps while under custody. Will give some fluids and assess response to this. 3. Left leg swelling: Non-inflammatory, no signs of infection present, DVT ruled out at [facility]. It is more localized and not in the setting of anasarca. It will need close monitoring. Advise to keep leg elevated and will give a dose of furosemide to see if it helps. Frequent pulse and sensation checks should be done. May require a repeat Doppler study. 4. Pressure ulcer: It appears he continues to put pressure on the right stump which is causing this nonhealing ulcer. Wound care is consulted. 5. Diabetes: Poorly controlled. Will place sliding scale. 6. Hypertension: Also poorly controlled. Will resume oral antihypertensives once reconciled. Past Med Surg Social Fam HX - Past Medical History Medical history: diabetes, GERD, hepatitis, hypertension, other Additional medical history: Hep C Psychiatric history: anxiety, depression - Past Surgical History Surgical History: orthopedic, other Additional surgical history: Bernadette CALVO 08/2015 - Social History Smoking Status: Current every day smoker Smokeless Tobacco Status: No Alcohol use: none Drug use: none - Family History Grandmother Family Member Ethnicity: Non- Living Status: Still Living Hx Family Cardiac Disorders: Yes (HTN) Hx Family Endocrine Disorder: Yes (DM) Mother Family Member Ethnicity: Non- Living Status: Still Living Hx Family Cardiac Disorders: Yes (HTN) Hx Family Respiratory Disorders: No Hx Family Cancer: No Hx Family GI Disorders: No Hx Family Endocrine Disorder: No Hx Family Neuromuscular Disorders: No Hx Family Neurologic Disorders: No Hx Family HEENT Disorders: No Hx Family Autoimmune Disorders: No Internal Medicine - H&P: Meds Insulin ASPART [NovoLOG] 0 unit SQ TIDAC PRN 09/06/18 [History] RX: Cyclobenzaprine [Flexeril] 10 mg PO TID 09/14/18 [History] RX: Insulin Glargine [Lantus] 15 unit SQ HS 09/14/18 [History] RX: Loperamide [Imodium] 2 - 4 mg PO TID PRN 09/14/18 [History] RX: Sodium Bicarbonate 325 mg PO TID 09/14/18 [History] RX: amLODIPine [Norvasc] 5 mg PO HS 09/14/18 [History] Allergy/AdvReac Type Severity Reaction Status Date / Time tramadol Allergy Swelling Verified 09/28/18 13:04 of Lip/Tongue/Throat All Systems PM: A 10-system review of systems was performed and is negative for pertinent findings except as documented above in the HPI. - Constitutional Vitals: Temp Pulse Resp BP Pulse Ox 97.5 F L 112 12 165/118 99 09/28/18 20:31 09/28/18 20:31 09/28/18 20:31 09/28/18 20:31 09/28/18 20:31 Exam: . - Time Spent With Patient Total time spent is greater than 50% in coordination of care (as documented) at patient's floor/unit and/or counseling patient: Greater than 35 minutes
[2018-09-28] MEDS ORDERED: amLODIPine 5 MG TABLET PO ONE (21:25)
[2018-09-28 21:46] LABS: Basophils # 0.1 K/mcL (0.0-0.2); Eosinophils # 0.3 K/mcL (0.0-0.6); Eosinophils % 4.3 %; Hematocrit 23.1 % (37.5-50.1); Hemoglobin 7.3 g/dL (12.9-16.9); Immature Granulocytes % 0.3 % (0-4); Lymphocytes # 2.3 K/mcL (0.6-4.6); Lymphocytes % 31.5 %; Mean Corpuscular HGB Conc 31.6 g/dL (31.6-35.5); Mean Corpuscular Hemoglobin 27.2 pg (28.0-33.3); Mean Corpuscular Volume 86.2 fL (83.0-100.0); Mean Platelet Volume 10.9 fL (9.4-12.4); Monocytes # 0.6 K/mcL (0.0-1.3); Monocytes % 8.5 %; Neutrophils # 3.9 K/mcL (1.6-8.9); Platelet Count 276 K/mcL (140-400); Red Blood Count 2.68 M/mcL (4.19-5.50); Red Cell Distribution Width 16.9 % (11.5-14.5); Segmented Neutrophils % 54.4 %; White Blood Count 7.1 K/mcL (4.3-11.1)
[2018-09-28 21:55] LABS: INR 1.1; Prothrombin Time 12.4 Seconds (9.4-12.1)
[2018-09-28 21:58] LABS: Activated Partial Thrombo Time 36.5 Seconds (26.0-36.0)
[2018-09-28] MEDS: *HR* HYDROcodone/Acet 5/325 mg TABLET PO PRN (22:22)
[2018-09-28 22:25] LABS: Albumin 2.6 g/dL (3.5-5.7); Bilirubin,Indirect 0.2 mg/dL (0.0-1.2); Bilirubin,Total 0.2 mg/dL (0.3-1.0); Calcium 8.1 mg/dL (8.6-10.3); Globulin 2.7 g/dL (2.4-3.5); Magnesium 1.8 mg/dL (1.6-2.6); Phosphorous 5.6 mg/dL (2.7-4.5); Potassium 5.8 mEq/L (3.5-5.1); Total Protein 5.3 g/dL (6.4-8.9)
[2018-09-28] MEDS ORDERED: *HR* Dextrose 50 % in Water (Vial) 50 ML VIAL IVP ONE (22:32)
[2018-09-28] MEDS ORDERED: Insulin Human Regular 10 UNIT in 0.9 % Sodium Chloride 10 ML IV ONE (22:32)
[2018-09-28] MEDS: *HR* Heparin 5,000 UNIT/ML VIAL SQ SCH (22:42)
[2018-09-28] MEDS ORDERED: Insulin DETEMIR 100 UNIT/ML X5UNITS SQ SCH (22:45)
[2018-09-29] MEDS ORDERED: *HR* Labetalol 20 MG/4 ML SYRINGE IVP ONE (00:31)
[2018-09-29] MEDS: *HR* OxyCODONE Immed Rel 5 MG TABLET PO PRN (00:49)
[2018-09-29] MEDS: *HR* HYDROcodone/Acet 5/325 mg TABLET PO PRN ×3 (04:27→17:55)
[2018-09-29 04:49] LABS: Hematocrit 21.9 % (37.5-50.1); Hemoglobin 6.9 g/dL (12.9-16.9)
--- NOTE | 2018-09-29 05:00 | Event Note ---
Date of Encounter: 09/29/18 Time of Encounter: 04:59 Anemia is noted to have worsened; now below 7. Iron studies ordered and will give 1U pRBC. Will also check stool for occult blood. DVT prophylaxis held.
[2018-09-29] MEDS: *HR* Heparin 5,000 UNIT/ML VIAL SQ SCH (05:06)
[2018-09-29 05:11] LABS: Calcium 8.1 mg/dL (8.6-10.3); Potassium 6.1 mEq/L (3.5-5.1)
[2018-09-29] MEDS ORDERED: Albuterol 2.5 MG/3 ML NEBULIZER IH ONE (06:06)
[2018-09-29] MEDS ORDERED: *HR* Dextrose 50 % in Water (Vial) 50 ML VIAL IVP ONE (06:06)
[2018-09-29] MEDS ORDERED: Insulin Human Regular 10 UNIT in 0.9 % Sodium Chloride 10 ML IV ONE (06:06)
[2018-09-29] MEDS ORDERED: CALCIUM GLUCONATE 1 GM/50 ML IV ONE ×2 (06:07→18:15)
[2018-09-29] MEDS ORDERED: 0.9 % Sodium Chloride 250 ML ONE (06:28)
[2018-09-29] MEDS ORDERED: Insulin Human Regular 5 UNIT, Sodium Bicarbonate 50 MEQ in D10% in Water 500 ML IVC ONE (07:36)
[2018-09-29] MEDS: Insulin LISPRO 300 UNITS/3 ML VIAL SQ SCH ×3 (08:07→16:51)
--- NOTE | 2018-09-29 08:17 | Electrocardiograph Report ---
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
--- NOTE | 2018-09-29 08:58 | Internal Med Progress Note ---
Hospitalist Progress Note - Encounter Date of Encounter: 09/29/18 Time of Encounter: 10:00 - Subjective Interval History: Admitted overnight for lower extremity warmth and redness. Found to be hyperkalemic and anemic - Exam Vitals: Temp Pulse Resp BP Pulse Ox 98.8 F 106 16 136/92 99 09/29/18 07:45 09/29/18 07:45 09/29/18 07:45 09/29/18 07:45 09/29/18 07:45 Exam: General appearance: Present: A&O X 3, no acute distress Head exam: Present: normocephalic Respiratory exam: Present: CTAB. Absent: accessory muscle use, rales, rhonchi, wheezes Cardiovascular exam: Present: RRR, +S1, +S2. Absent: diastolic murmur, gallop, rubs, systolic murmur GI/Abdominal exam: Soft, NT, ND, +BS Extremities exam: Absent: pedal edema. s/p right BKA. Left lower extremity redness and warmth Neurological exam: Present: alert, oriented X3, no focal deficits. Absent: altered - Assessment and Plan (1) Hyperkalemia Current Visit: Yes Status: Acute Assessment and Plan: Patient came in with redness and warmth of left leg.Noted to have RORO vs RORO on CKD and elevated potassium Potassium has steadily trended up to 6.6 despite 2 doses of kayexalate and insulin/bicarb/ D50 Renal notified as aptietn may need dialysis. Start on insulin drip for hyperkalemia and elevated blood glucose. Will give another dose of kayexalate (2) Cellulitis Current Visit: Yes Status: Acute Assessment and Plan: Pt comes in with left lower extremity redness and warmth of 3 days duration likely 2/2 to cellulitis Will start on vanc and zosyn . Follow blood cultures (3) Anemia Current Visit: Yes Status: Acute Assessment and Plan: PT has anemia possibly 2/2 to acute on chronic GI bleed vs chronic kidney disease Denies any acute blood loss from stools. Transfused 1 Unit PRBC GI consulted and appreciate recs (4) Acute kidney injury Current Visit: Yes Status: Acute Assessment and Plan: Continue IV fluids (5) Hypertension Current Visit: Yes Status: Acute Assessment and Plan: Increase dose of amlodipine (6) DVT prophylaxis Current Visit: Yes Status: Acute Assessment and Plan: SCDs - Time Spent with Patient Total time spent is greater than 50% in coordination of care (as documented) at patient's floor/unit and/or counseling patient: Internal Medicine: Result - Labs CBC & Chem 7: 09/29/18 11:38 09/29/18 16:00 Labs: Short CBC 09/28/18 09/29/18 Range/Units 21:24 04:36 WBC 7.1 (4.3-11.1) K/mcL Hgb 7.3 L D 6.9 L (12.9-16.9) g/dL Hct 23.1 L 21.9 L (37.5-50.1) % Plt Count 276 D (140-400) K/mcL Neutrophils # 3.9 (1.6-8.9) K/mcL BMP 09/28/18 09/29/18 21:24 04:36 Sodium 137 137 Potassium 5.8 H 6.1 H Chloride 111 H 109 H Carbon Dioxide 21 L 21 L BUN 31 H 33 H Creatinine 2.94 H 3.32 H Glucose 110 H 102 Calcium 8.1 L 8.1 L Liver Function 09/28/18 Range/Units 21:24 Total Bilirubin 0.2 L (0.3-1.0) mg/dL Direct Bilirubin 0.0 (0.0-0.2) mg/dL AST 16 (13-39) Units/L ALT 9 (7-52) Units/L Alkaline Phosphatase 62 (34-104) Units/L Albumin 2.6 L (3.5-5.7) g/dL - ABG Interpretation ABG results: PT/INR, D-dimer PT 12.4 Seconds (9.4-12.1) H 09/28/18 21:24 Consult Discharge Plan - Plan Referrals: NONE,PCP [Primary Care Provider] - __ (2) Cellulitis Qualifiers: Site of cellulitis: unspecified site Qualified Code(s): L03.90 - Cellulitis, unspecified
[2018-09-29 09:10] LABS: Iron 47 mcg/dL (65-175); Lactate Dehydrogenase 150 Units/L (140-271)
[2018-09-29 09:26] LABS: Ferritin 109 ng/mL (20-250)
[2018-09-29] MEDS ORDERED: Vancomycin 1 EACH in 0.9 % Sodium Chloride 250 ML IVPB SCH (10:00)
[2018-09-29] MEDS: Piperacillin/Tazobactam 3.375 GM in 0.9 % Sodium Chloride Mini Bag 100 ML IVPB SCH ×2 (11:49→18:06)
[2018-09-29 11:51] LABS: Hematocrit 22.8 % (37.5-50.1); Hemoglobin 7.4 g/dL (12.9-16.9)
--- NOTE | 2018-09-29 12:01 | Nephrology Consult Note ---
Date of Encounter: 09/29/18 Time of Encounter: 08:40 Assessment and Plan (1) RORO (acute kidney injury) Current Visit: No Status: Acute Agree with more kayexalate but if he does not respond medically, then more options may be needed. His SCr is acute on chronically elevated consistent with RORO on CKD stage IV. Of not, he has had a Right BKA and the GFR estimate presumes a body surface area of approx 1.7 and since his body surface area is reduced, then the GFR would underestimate the actual degree of his renal disease. He may need dialysis initated during this admission depending upon his labs, vitals, UOP, and etc. Meanwhile, I recommend continuing to follow a renal protective strategy: strict I/Os, daily weights, avoidance of nephrotoxins, Renal diet (i.e., a very low to no K+ in his diet). I will start an RORO on CKD work up. The last retroperitoneal U/S was in early 2018, and unremarkable, but out of an abundance of caution, I recommend rechecking to rule out any postrenal contribution. Thank you for consulting the [facility] group. Will follow with you. Tomorrow at 0800, my colleague Dr. Woodson will be on-call/on-service, and I'll provide a thorough handoff. (2) Hyperkalemia Current Visit: No Status: Acute I suspec this from dietary indescretion in the setting of advanced CKD. RTA type IV could be in the differential diagnosis, but of note, his U pH was just 7, which is not very acidotic. He should be screened for hypoaldosteronism and adre nal insufficiency. I will order these and ask my colleague will take over the on-call Nephrology service tomorrow to follow up with this work up. (3) CKD stage 4 due to type 1 diabetes mellitus Current Visit: No Status: Chronic Baseline CKD stage IV with GFR in the mid to upper 20s. (4) Edema of left lower extremity Current Visit: Yes Status: Acute LLE edema, and with his proteinuria, this could be consistent with nephrotic syndrome. I recommend a lower NaCl diet and elevation of his feet. He may need care home diuretics at some point, but d/t the current RORO, I recommend holding a loop diuretic for 24-48hr if able. (5) Abscess of right lower extremity Current Visit: No Status: Acute As per primary. Pt's with deep wounds are more at risk for developing an infection associated GN. The treatment would be to treat the underlying infection. (6) Proteinuria Current Visit: Yes Status: Acute The urinalysis demonstrated proteinuria, and given his long history of diabetes and hypertension, thes are likely the primary etiology for his proteinuric CKD stage IV; however, I recommend he have a proper CKD workup and will check anti- PLA2R, NIALL, ANCA, complement C3 and C4. I see that a [place]/lambda free light chain analysis was checked in the past and ot was polyclonal with a normal ratio, which is reassuring. Qualifiers: Proteinuria type: persistent Qualified Code(s): R80.1 - Persistent proteinuria, unspecified History of Present Illness - Reason for Consult Consult date: 09/29/18 Acute Kidney Injury, Chronic Kidney Disease, hyperkalemia Requesting physician: Kristin Kulkarni - Chief Complaint RORO on CKD with acute on chronic hyperkalemia - History of Present Illness The patient is a 28-year-old male with a past medical history of long- standing type 1 diabetes, chronic kidney disease stage IV, diabetic wound status post right BKA and et al who presented with feelings of fatigue and generalized weakness, and was found to have hyperkalemia and worsening renal function. The patient is an inmate at a correctional facility, and there was an officer present in the room during my interview and exam. Nephrology was consulted because of his renal findings. He reported having type 1 diabetes since approximately the age of 13. He denied taking aihu-syi-mabaxex NSAIDs. He reported having some fatigue, without nausea, vomiting, diarrhea, abdominal pain, flank pain, burning urination, or headache. He reported having difficulty with mobility after the right BKA amputation, but he has noted significant swelling that has worsened over time in the left lower extremity. His wounds of the right posterior knee and also on the left leg have been festering, he affirmed. He did not report having any known palliative or provocative factors. His symptoms have been progressively worsening over weeks and then dramatically so just before admission. Past Med Surg Social Fam HX - Past Medical History Medical history: diabetes, GERD, hepatitis, hypertension, other Additional medical history: Hep C Psychiatric history: anxiety, depression - Past Surgical History Surgical History: orthopedic, other Additional surgical history: R BKA 08/2015 - Social History Smoking Status: Current every day smoker Smokeless Tobacco Status: No Alcohol use: none Drug use: none - Family History Grandmother Family Member Ethnicity: Non- Living Status: Still Living Hx Family Cardiac Disorders: Yes (HTN) Hx Family Endocrine Disorder: Yes (DM) Mother Family Member Ethnicity: Non- Living Status: Still Living Hx Family Cardiac Disorders: Yes (HTN) Hx Family Respiratory Disorders: No Hx Family Cancer: No Hx Family GI Disorders: No Hx Family Endocrine Disorder: No Hx Family Neuromuscular Disorders: No Hx Family Neurologic Disorders: No Hx Family HEENT Disorders: No Hx Family Autoimmune Disorders: No Medications and Allergies Insulin ASPART [NovoLOG] 0 unit SQ TIDWM 09/06/18 [History] Cyclobenzaprine [Flexeril] 10 mg PO TID 09/14/18 [History] Insulin Glargine [Lantus] 15 unit SQ HS 09/14/18 [History] Loperamide [Imodium] 2 - 4 mg PO TID PRN 09/14/18 [History] Sodium Bicarbonate 325 mg PO TID 09/14/18 [History] amLODIPine [Norvasc] 5 mg PO DAILY 09/14/18 [History] Dextrose Gel [Gluctose] 1 tube PO AD PRN 09/29/18 [History] Dextrose [Glucose] 4 gm PO AD PRN 09/29/18 [History] Furosemide [Lasix] 20 mg PO DAILY 09/29/18 [History] Glucagon,Human Recombinant [Glucagon Emergency Kit] 1 mg SQ AD PRN 09/29/18 [History] Insulin Glargine [Lantus] 7 unit SQ HS 09/29/18 [History] Allergy/AdvReac Type Severity Reaction Status Date / Time tramadol Allergy Swelling Verified 09/29/18 08:47 of Lip/Tongue/Throat Review of Systems All Systems: reviewed and no additional remarkable complaints except as stated Exam - Vital Signs Vital signs: Initial Vital Signs Temp Pulse Resp BP Pulse Ox 97.5 F L 112 12 165/118 99 09/28/18 20:31 09/28/18 20:31 09/28/18 20:31 09/28/18 20:31 09/28/18 20:31 Vital Signs - Last 8 Hours Temp Pulse Resp BP Pulse Ox 09/29/18 09:15 98.9 F 105 18 142/92 99 09/29/18 07:45 98.8 F 106 16 136/92 99 09/29/18 07:09 98.9 F 101 18 136/88 99 09/29/18 06:38 98.9 F 101 18 128/90 99 09/29/18 05:42 98.8 F 105 12 132/84 99 Intake and Output 09/28/18 09/29/18 09/29/18 23:59 07:59 15:59 Intake Total 0 / 0 1200 / 1560 360 / 1560 Output Total 1550 / 1550 400 / 400 Balance -1550 / -1550 800 / 1160 360 / 1160 Intake: Oral 0 / 0 1200 / 1560 360 / 1560 Blood Product 0 / 0 Rbcs Leuko Poor As-3 Ph Unit 0 / 0 [id number] Output: Urine 1550 / 1550 400 / 400 Other: Meal Breakfast Percent of Meal Consumed 100% Stool Size Moderate Stool Consistency loose liquid Stool Characteristics Pasty Stool Color Brown # Bowel Movements 1 Weight 84 kg 84 kg Blood Glucose* 120 154 145 Patient Weight 09/29/18 23:59 Weight 84 kg - General Appearance General appearance: appears started age, chronically ill EENT: ATNC, PERRL, mucous membranes moist Neck: no JVD, supple Respiratory: no kyphosis, clear (but diminished in the bibasilar region bilaterally) Cardiology: edema (approx 1-2+ pitting edema in in the LLE), regular rate, regular rhythm, normal S1, normal S2 Gastrointestinal: normoactive bowel sounds, no tenderness, no guarding Integumentary: ulcer, ecchymotic Neurologic: no focal deficit, no asterixis, alert and oriented x3 Musculoskeletal: no cyanosis, no clubbing Psychiatric: mood/affect appropriate, cooperative Results - Lab Results 09/29/18 11:38 09/29/18 04:36 Most recent lab results 09/29/18 09/29/18 04:36 04:36 Calcium 8.1 L Phosphorus 6.6 H Consult Discharge Plan - Plan Referrals: NONE,PCP [Primary Care Provider] -
--- NOTE | 2018-09-29 12:15 | Gastroenterology Consult Note ---
<Dontrell Tellez Tarun - Last Filed: 09/29/18 12:12> Date of Encounter: 09/29/18 Time of Encounter: 10:20 - Assessment and plan (1) Anemia Current Visit: No Status: Chronic Assessment and plan: Baseline Hgb around 9. Hgb on admission and 7.3 and this morning Hgb 6.9. Continue to monitor CBC and transfuse PRBC as needed. Recommend EGD and colonoscopy tomorrow, but patient refuses scopes at this time. Risks explained to patient, including continued worsening of anemia, SOB, fatigue, MS, and . Patient continued to refuse scopes, because he "wants to eat lunch". Dr. Moran to speak with patient this afternoon, and discuss EGD with him. If agreeable to EGD tomorrow, keep NPO at midnight. Qualifiers: Anemia type: unspecified type Qualified Code(s): D64.9 - Anemia, unspecified - Time Spent With Patient Total time spent is greater than 50% in coordination of care (as documented) at patient's floor/unit and/or counseling patient: GI History of Present Illness - Data of Consult Patient: new to practice Consult date: 09/29/18 Requesting Physician: Ana Hickey - Consult Narrative Reason for consult: Anemia History of present illness: Mr. Anders is a 28 year old male with PMHx of DM, GERD, hepatitis C, HTN, right BKA 08/2015 was brought in here from [facility] ED where he was taken to while under custody with the complaint of left leg swelling. He was found to be hyperkalemic with potassium 6.9, he has received Kayexalate and potassium 6.1 this morning. We were consulted to evaluate his anemia. Baseline Hgb around 9. Hgb on admission and 7.3 and this morning Hgb 6.9. Patient denies any abdominal pain, nausea, vomiting, coffee-ground emesis, hematemesis, melena, or hematochezia. He does have history of hepatitis C. He admits to history of IV drug use with shared needles, intranasal drug use with shared straws, several unprofessional tattoos. He denies any sexual partners with hep C. Procedures: None NSAIDs: None Anticoagulation: None Past Med Surg Social Fam HX - Past Medical History Medical history: diabetes, GERD, hepatitis, hypertension, other Additional medical history: Hep C Psychiatric history: anxiety, depression - Past Surgical History Surgical History: orthopedic, other Additional surgical history: R BKA 08/2015 - Social History Smoking Status: Current every day smoker Smokeless Tobacco Status: No Alcohol use: none Drug use: none - Family History Grandmother Family Member Ethnicity: Non- Living Status: Still Living Hx Family Cardiac Disorders: Yes (HTN) Hx Family Endocrine Disorder: Yes (DM) Mother Family Member Ethnicity: Non- Living Status: Still Living Hx Family Cardiac Disorders: Yes (HTN) Hx Family Respiratory Disorders: No Hx Family Cancer: No Hx Family GI Disorders: No Hx Family Endocrine Disorder: No Hx Family Neuromuscular Disorders: No Hx Family Neurologic Disorders: No Hx Family HEENT Disorders: No Hx Family Autoimmune Disorders: No - Gastrointestinal Gastrointestinal: Present: as per HPI - Constitutional Constitutional: as per HPI - EENT Eyes: as per HPI Ears: Present: as per HPI Nose, mouth and throat: Present: as per HPI - Cardiovascular Cardiovascular ROS: Present: as per HPI - Respiratory Respiratory IM: Present: as per HPI - Genitourinary Genitourinary: Absent: change in color, Urinary frequency - Neurological ROS Neurological GI: Present: as per HPI - Hematologic/Lymphatic Hematologic/Lymphatic pediatric: Present: as per HPI - Musculoskeletal Musculoskeletal ROS GI: Present: as per HPI - Integumentary Integumentary GI: Present: as per HPI - Psychiatric ROS Psychiatric GI: Present: as per HPI - Endocrine Endocrine IM: Present: as per HPI - Constitutional Vitals: Temp Pulse Resp BP Pulse Ox 98.9 F 105 18 142/92 99 09/29/18 09:15 09/29/18 09:15 09/29/18 09:15 09/29/18 09:15 09/29/18 09:15 General appearance: Present: cooperative, A&O X 3, no acute distress, answers questions appropriately - Head Head exam: Present: normocephalic Additional comments: erythematous bald patches on scalp - Eye Eye exam: Present: normal appearance, sclera anicteric - ENT ENT exam: Present: mucous membranes moist - Neck Neck exam general surgery: Present: normal inspection, trachea midline - Respiratory Respiratory exam: Present: decreased breath sounds, CTAB - Cardiovascular Cardiovascular exam: Present: RRR, +S1, +S2 - GI/Abdominal GI/Abdominal exam: Present: soft, no peritoneal signs. Absent: distended, firm, guarding, tenderness - Rectal Rectal exam: Present: deferred - Extremities Exam Additional comments: Right BKA - Neurological Exam Neurological exam: Present: no focal deficits - Psychiatric Psychiatric exam: Present: normal affect, normal mood - Skin Skin exam: Present: dry, intact, normal color, warm Results - Labs CBC & Chem 7: 09/29/18 11:38 09/29/18 04:36 Labs: Last Result 09/29/18 09/29/18 09/29/18 04:36 05:47 08:28 Calcium 8.1 L Iron 51 L 47 L % Saturation 29 Transferrin 127 L Ferritin 118 109 Vitamin B12 Stool Occult Blood Negative 09/29/18 08:28 Calcium Iron % Saturation Transferrin Ferritin Vitamin B12 418 Stool Occult Blood Entire Visit 09/29/18 09/29/18 09/29/18 04:36 04:36 08:28 Hgb 6.9 L Hct 21.9 L Ferritin 118 109 09/29/18 11:38 Hgb 7.4 L Hct 22.8 L Ferritin - ABG ABG results: PT/INR, D-dimer PT 12.4 Seconds (9.4-12.1) H 09/28/18 21:24 Consult Discharge Plan - Plan Referrals: Brijesh Valencia DO [Partnered Physician] - <Tobias Moran - Last Filed: 10/03/18 05:08> Date of Encounter: 09/29/18 - Time Spent With Patient Total time spent is greater than 50% in coordination of care (as documented) at patient's floor/unit and/or counseling patient: GI History of Present Illness - Data of Consult Requesting Physician: Ana Hickey - Consult Narrative History of present illness: Mr. Anders is a 28 year old male - Constitutional Vitals: Temp Pulse Resp BP Pulse Ox 98.3 F 97 16 162/101 97 10/03/18 04:29 10/03/18 04:29 10/03/18 04:29 10/03/18 04:29 10/03/18 04:29 Results - Labs CBC & Chem 7: 10/03/18 04:35 10/02/18 04:25 Labs: Entire Visit 10/03/18 04:35 Hgb 8.1 L Hct 25.6 L - ABG ABG results: PT/INR, D-dimer PT 12.4 Seconds (9.4-12.1) H 09/28/18 21:24 - Attending Attestation Unfortunate 28 year old white male with IVDA, multiple unprofessional tattoos and abnormal liver enzymes. patient refuses endoscopy. Will hold off this unless he changes his mind. Hepatitis and liver workup in progress. Has chronic hepatitis C apparently. I have personally performed a face to face evaluation on this patient. I have reviewed and agree with the care plan. History and Exam by me shows:
[2018-09-29 13:01] LABS: Hepatitis B Surface Antibody 9.17 mIU/mL
[2018-09-29 13:12] LABS: Hepatitis B Surface Antigen Nonreactive (Nonreactive)
[2018-09-29 16:57] LABS: Uric Acid 5.5 mg/dL (2.3-7.6)
[2018-09-29] MEDS ORDERED: amLODIPine 5 MG TABLET PO ONE (17:00)
[2018-09-29] MEDS ORDERED: Calcium Gluconate 2,000 MG in 0.9 % Sodium Chloride 100 ML IVPB ONE (17:05)
[2018-09-29] MEDS ORDERED: Insulin Human Regular 100 UNIT in 0.9 % Sodium Chloride 100 ML IVC SCH (17:30)
[2018-09-29] MEDS ORDERED: *HR* Metoprolol 5 MG/5 ML VIAL IVP ONE (18:58)
[2018-09-29 18:59] LABS: Hepatitis B Surface Antigen Nonreactive (Nonreactive)
[2018-09-29 19:35] LABS: Hepatitis B Core IgM Reactive (Nonreactive)
[2018-09-29 19:36] LABS: Hepatitis A Antibody IgM Nonreactive (Nonreactive)
[2018-09-29] MEDS ORDERED: amLODIPine 5 MG TABLET PO SCH (21:00)
[2018-09-29] MEDS: 0.9 % Sodium Chloride 1,000 ML IVC SCH (21:55)
[2018-09-29 21:57] LABS: Creatinine,Urine 22 mg/dL; Microalbum/Creatinine Ratio,Ur 4218 mcg/mg (Less than 30); Microalbumin,Urine 928 mg/L
[2018-09-30] MEDS: *HR* HYDROcodone/Acet 5/325 mg TABLET PO PRN ×3 (00:32→19:26)
[2018-09-30] MEDS: Piperacillin/Tazobactam 3.375 GM in 0.9 % Sodium Chloride Mini Bag 100 ML IVPB SCH ×3 (03:05→17:48)
[2018-09-30] MEDS: *HR* Dextrose 50 % in Water (Syg) 50 ML SYRINGE IVP PRN ×2 (03:33→04:17)
[2018-09-30 03:44] LABS: Basophils % 0.5 %; Eosinophils # 0.2 K/mcL (0.0-0.6); Eosinophils % 2.7 %; Hematocrit 23.3 % (37.5-50.1); Hemoglobin 7.3 g/dL (12.9-16.9); Immature Granulocytes % 0.3 % (0-4); Lymphocytes # 3.1 K/mcL (0.6-4.6); Lymphocytes % 39.3 %; Mean Corpuscular HGB Conc 31.3 g/dL (31.6-35.5); Mean Corpuscular Hemoglobin 27.9 pg (28.0-33.3); Mean Corpuscular Volume 88.9 fL (83.0-100.0); Mean Platelet Volume 10.5 fL (9.4-12.4); Monocytes # 0.9 K/mcL (0.0-1.3); Monocytes % 11.3 %; Neutrophils # 3.6 K/mcL (1.6-8.9); Platelet Count 248 K/mcL (140-400); Red Blood Count 2.62 M/mcL (4.19-5.50); Red Cell Distribution Width 16.9 % (11.5-14.5); Segmented Neutrophils % 45.9 %; White Blood Count 7.8 K/mcL (4.3-11.1)
[2018-09-30 03:56] LABS: Albumin 2.6 g/dL (3.5-5.7)
[2018-09-30 04:00] LABS: Calcium 7.9 mg/dL (8.6-10.3); Magnesium 1.7 mg/dL (1.6-2.6); Phosphorous 6.3 mg/dL (2.7-4.5); Potassium 5.7 mEq/L (3.5-5.1)
--- NOTE | 2018-09-30 04:19 | Event Note ---
Date of Encounter: 09/30/18 Time of Encounter: 04:10 Alerted by patient's nurse Cait the patient's glucose was 29. Pt. given two amps of dextrose IVP which increased BG to 69. Pt. A&O and was given something to eat. Pt. is on insulin gtt. Nurse reports that the pts. BG drops unless he is constantly eating. Nurse instructed to give another IVP of dextrose and check BG Q15MIN and alert me of the results. Nurse instructed to continue monitoring pt. very closely and alert me immediately of any adverse changes. Pts. BG needs to be addressed by day team.
[2018-09-30 04:29] LABS: Hepatitis C Virus Antibody Reactive (Nonreactive)
[2018-09-30] MEDS: 0.9 % Sodium Chloride 1,000 ML IVC SCH ×2 (06:07→17:48)
[2018-09-30] MEDS ORDERED: D5% in Water 1,000 ML IVC PRN (07:35)
[2018-09-30] MEDS ORDERED: *HR* Dextrose 50 % in Water (Syg) 50 ML SYRINGE IVP PRN (07:35)
[2018-09-30] MEDS ORDERED: Dextrose Gel 15 GM/37.5 ML TUBE PO PRN ×2 (07:35)
[2018-09-30] MEDS: amLODIPine 5 MG TABLET PO SCH (08:24)
[2018-09-30] MEDS ORDERED: Insulin DETEMIR 100 UNIT/ML X5UNITS SQ ONE (08:28)
--- NOTE | 2018-09-30 10:03 | Internal Med Progress Note ---
Hospitalist Progress Note - Encounter Date of Encounter: 09/30/18 Time of Encounter: 10:00 - Exam Vitals: Temp Pulse Resp BP Pulse Ox 97.7 F 106 16 174/113 98 09/30/18 07:04 09/30/18 07:04 09/30/18 07:04 09/30/18 07:04 09/30/18 07:04 Exam: General appearance: Present: A&O X 3, no acute distress Head exam: Present: normocephalic Respiratory exam: Present: CTAB. Absent: accessory muscle use, rales, rhonchi, wheezes Cardiovascular exam: Present: RRR, +S1, +S2. Absent: diastolic murmur, gallop, rubs, systolic murmur GI/Abdominal exam: Soft, NT, ND, +BS Extremities exam: Absent: pedal edema. s/p right BKA. Left lower extremity redness and warmth Neurological exam: Present: alert, oriented X3, no focal deficits. Absent: altered - Assessment and Plan (1) Hyperkalemia Current Visit: Yes Status: Acute Assessment and Plan: Patient came in with redness and warmth of left leg.Noted to have RORO vs RORO on CKD and elevated potassium Potassium has steadily trended up to 6.6 despite 2 doses of kayexalate and insulin/bicarb/ D50 Renal notified as aptietn may need dialysis. Start on insulin drip for hyperkalemia and elevated blood glucose. Will give another dose of kayexalate (2) Cellulitis Current Visit: Yes Status: Acute Assessment and Plan: Pt comes in with left lower extremity redness and warmth of 3 days duration likely 2/2 to cellulitis Will start on vanc and zosyn . Follow blood cultures (3) Anemia Current Visit: Yes Status: Acute Assessment and Plan: PT has anemia possibly 2/2 to acute on chronic GI bleed vs chronic kidney disease Denies any acute blood loss from stools. Transfused 1 Unit PRBC GI consulted and appreciate recs (4) Acute kidney injury Current Visit: Yes Status: Acute Assessment and Plan: Continue IV fluids (5) Hypertension Current Visit: Yes Status: Acute Assessment and Plan: Increase dose of amlodipine (6) DVT prophylaxis Current Visit: Yes Status: Acute Assessment and Plan: SCDs - Time Spent with Patient Total time spent is greater than 50% in coordination of care (as documented) at patient's floor/unit and/or counseling patient: Internal Medicine: Result - Labs CBC & Chem 7: 09/30/18 03:15 09/30/18 03:15 Labs: Short CBC 09/29/18 09/30/18 Range/Units 11:38 03:15 WBC 7.8 (4.3-11.1) K/mcL Hgb 7.4 L 7.3 L (12.9-16.9) g/dL Hct 22.8 L 23.3 L (37.5-50.1) % Plt Count 248 (140-400) K/mcL Neutrophils # 3.6 (1.6-8.9) K/mcL BMP 09/29/18 09/29/18 09/29/18 16:00 16:00 17:42 Sodium Cancelled Potassium 6.6 H* Cancelled 6.1 H Chloride Cancelled Carbon Dioxide Cancelled BUN Cancelled Creatinine Cancelled Glucose Cancelled Calcium Cancelled 09/30/18 03:15 Sodium 139 Potassium 5.7 H Chloride 114 H Carbon Dioxide 19 L BUN 33 H Creatinine 3.39 H Glucose 29 L* Calcium 7.9 L Liver Function 09/30/18 Range/Units 03:15 Albumin 2.6 L (3.5-5.7) g/dL - ABG Interpretation ABG results: PT/INR, D-dimer PT 12.4 Seconds (9.4-12.1) H 09/28/18 21:24 - Impressions Impressions Retroperitoneum Ultrasound 09/29/18 17:00 IMPRESSION: Mild right-sided renal hyperechogenicity. That may suggest developing medical renal disease. No evidence of hydronephrosis or hydroureter is found. D/ / Evelio Casanova MD / Evelio Casanova MD Interpreting Provider: Evelio Casanova MD Consult Discharge Plan - Plan Referrals: NONE,PCP [Primary Care Provider] - (2) Cellulitis Qualifiers: Site of cellulitis: unspecified site Qualified Code(s): L03.90 - Cellulitis, unspecified
[2018-09-30] MEDS: Insulin LISPRO 300 UNITS/3 ML VIAL SQ SCH ×2 (12:14→17:50)
[2018-09-30] MEDS: *HR* Metoprolol 5 MG/5 ML VIAL IVP PRN (12:14)
[2018-09-30] MEDS ORDERED: *HR* Labetalol 20 MG/4 ML SYRINGE IVP ONE (12:29)
[2018-09-30] MEDS ORDERED: 0.9 % Sodium Chloride 250 ML ONE (14:00)
--- NOTE | 2018-09-30 14:04 | Discharge Summary ---
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 It is stated that he was sentenced to [facility] yesterday and they are trying to get him medically evaluated due to his complaint of swelling over the past few days. He denied having fever or pain. There were no wounds and intensified on the left leg and no inflammatory signs present. A CT scan was done which showed diffuse subcutaneous edema but no inflammatory signs or and signs for abscess. He also had a duplex done which ruled out DVT. Incidentally on labs he was found to have a potassium of 6.9 and an elevation in his creatinine from his baseline He was assessed with warmth and redness of his left leg secondary to cellulitis. He has been treated with vanc and zosyn and his cellulitis has improved. He was also noted to be hyperkalemic on admission at 6.9. He was given kayexalate and insulin d50/ bicarb and calcium gluconate and his potassium trended down to 5.8 but went back up to 6.6. He was placed on an insulin drip overnight and given more doses of kayexalate. Potassium is currently 5.6 He was also noted to be anemic on admission possibly secondary to chronic kidney disease vs acute GI blood loss. Lowest hgb was 6.9 and he got one unit of blood. Hgb is currently 7.3. He declined endoscopy by GI. He has uncontrolled hypertension and his amlodipine dose has been increased. 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 He was discharged to [facility] in a stable condition. 35 minutes was spent discharging this patient (2) Cellulitis Priority: Primary Status: Acute Assessment and Plan: Pt comes in with left lower extremity redness and warmth of 3 days duration likely 2/2 to cellulitis Will start on vanc and zosyn . Follow blood cultures Qualifiers: Site of cellulitis: unspecified site Qualified Code(s): L03.90 - Cellulitis, unspecified (3) Anemia Priority: Primary Status: Acute Qualifiers: Qualified Code(s): D64.9 - Anemia, unspecified (4) Acute kidney injury Priority: Primary Status: Acute (5) Hypertension Priority: Primary Status: Acute Qualifiers: Qualified Code(s): I10 - Essential (primary) hypertension (6) DVT prophylaxis Priority: Primary Status: Acute Hospital course: Mr. Anders is a 28 year old male - Time Spent with Patient Total time spent providing and/or coordinating discharge services: - Discharge Medications Prescriptions: No Action Insulin ASPART [NovoLOG] 0 unit SQ TIDWM amLODIPine [Norvasc] 5 mg PO DAILY Cyclobenzaprine [Flexeril] 10 mg PO TID Insulin Glargine [Lantus] 15 unit SQ HS Loperamide [Imodium] 2 - 4 mg PO TID PRN PRN Reason: Diarrhea Sodium Bicarbonate 325 mg PO TID Dextrose [Glucose] 4 gm PO AD PRN PRN Reason: Blood Sugar - Low Dextrose Gel [Gluctose] 1 tube PO AD PRN PRN Reason: Blood Sugar - Low Furosemide [Lasix] 20 mg PO DAILY Glucagon,Human Recombinant [Glucagon Emergency Kit] 1 mg SQ AD PRN PRN Reason: Blood Sugar - Low Insulin Glargine [Lantus] 7 unit SQ HS Home Medications: Insulin ASPART [NovoLOG] 0 unit SQ TIDWM 09/06/18 [History] Cyclobenzaprine [Flexeril] 10 mg PO TID 09/14/18 [History] Insulin Glargine [Lantus] 15 unit SQ HS 09/14/18 [History] Loperamide [Imodium] 2 - 4 mg PO TID PRN 09/14/18 [History] Sodium Bicarbonate 325 mg PO TID 09/14/18 [History] amLODIPine [Norvasc] 5 mg PO DAILY 09/14/18 [History] Dextrose Gel [Gluctose] 1 tube PO AD PRN 09/29/18 [History] Dextrose [Glucose] 4 gm PO AD PRN 09/29/18 [History] Furosemide [Lasix] 20 mg PO DAILY 09/29/18 [History] Glucagon,Human Recombinant [Glucagon Emergency Kit] 1 mg SQ AD PRN 09/29/18 [History] Insulin Glargine [Lantus] 7 unit SQ HS 09/29/18 [History] Allergies/Adverse Reactions: Allergy/AdvReac Type Severity Reaction Status Date / Time tramadol Allergy Swelling Verified 09/29/18 08:47 of Lip/Tongue/Throat Date of admission: 09/28/18 20:16 Primary care physician: PCP NONE Consults: 09/28/18 21:02 Consult to Wound Care [CONS] Routine Reason for Consult: Non healing ulcer after amputation Call Completed: No 09/28/18 23:55 Consult to Institutional Cook [CONS] Routine Reason for SW Consult: to f/u upon D/C patient has deputy at bedside patient is from [facility] 09/29/18 06:09 Consult to Nephrology [CONS] Routine Consulting Provider: Kidney Hannah/JANIE/MINERVA/SANTOSH Reason for Consult: 28 year old diabetic male who is poorly controlled presenting with progression of underlying CKD and recurring hyperkalemia Call Completed: No 09/29/18 07:39 Consult to Gastroenterology [CONS] Routine Consulting Provider: Gastroenterology Hannah Reason for Consult: anemia r/o gi bleed Call Completed: No 09/29/18 09:35 Consult to Invasive Line Access Team [CONS] Routine Reason for Consult: poor iv access Line Type: EPIV - Constitutional Vitals: Temp Pulse Resp BP Pulse Ox 98.1 F 88 16 198/122 98 09/30/18 11:56 09/30/18 11:56 09/30/18 11:56 09/30/18 12:42 09/30/18 07:04 Exam: General appearance: Present: A&O X 3, no acute distress Head exam: Present: normocephalic Respiratory exam: Present: CTAB. Absent: accessory muscle use, rales, rhonchi, wheezes Cardiovascular exam: Present: RRR, +S1, +S2. Absent: diastolic murmur, gallop, rubs, systolic murmur GI/Abdominal exam: Soft, NT, ND, +BS Extremities exam: Absent: pedal edema. s/p right BKA. Left lower extremity redness and warmth Neurological exam: Present: alert, oriented X3, no focal deficits. Absent: altered - Patient Status Disposition: Transfer [facility] Condition: Good - Discharge Instructions Follow Up With: NONE,PCP [Primary Care Provider] -
[2018-09-30] MEDS ORDERED: Vancomycin 500 MG in 0.9 % Sodium Chloride Mini Bag 100 ML IVPB ONE (14:11)
--- NOTE | 2018-09-30 14:47 | Electrocardiograph Report ---
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
--- NOTE | 2018-09-30 14:50 | Electrocardiograph Report ---
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
--- NOTE | 2018-09-30 15:55 | Nephrology Progress Note ---
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 (2) Hyperkalemia Current Visit: No Status: Acute due to dietary indiscretions with copious coffe intake etc Renal diet advised (3) Abscess of right lower extremity Current Visit: No Status: Acute (4) Edema of left lower extremity Current Visit: Yes Status: Acute (5) Proteinuria Current Visit: Yes Status: Acute Qualifiers: Proteinuria type: persistent Qualified Code(s): R80.1 - Persistent proteinuria, unspecified (6) CKD stage 4 due to type 1 diabetes mellitus Current Visit: No Status: Chronic Baseline GFR 20-30s bur likely more reduced given BKA Subjective Interval history: Interim noted, pt seen and examined with no new complaints. Officer at bedside. Per nurse, pt was drinking lots of coffee which is high in potassium content Objective - Vital Signs Vital signs: Vital Signs Temp Pulse Resp BP Pulse Ox 09/30/18 14:33 97.8 F 95 18 177/103 100 09/30/18 14:18 98 F 92 16 140/109 98 09/30/18 12:42 198/122 09/30/18 11:56 98.1 F 88 16 202/146 09/30/18 07:04 97.7 F 106 16 174/113 98 09/30/18 04:39 98.2 F 103 12 159/108 99 09/30/18 00:07 98.8 F 105 13 151/94 99 09/29/18 19:09 98.8 F 111 12 142/101 99 09/29/18 16:43 99.0 F 107 16 155/107 97 Intake and Output 09/29/18 09/30/18 09/30/18 23:59 07:59 15:59 Intake Total 1452.6 / 3942.6 2535.1 / 2985.1 450 / 2985.1 Output Total 1200 / 1600 600 / 1450 850 / 1450 Balance 252.6 / 2342.6 1935.1 / 1535.1 -400 / 1535.1 Intake: IV Fluids 12.6 / 112.6 1215.1 / 1215.1 0.9 % Sodium Chloride 1,000 ML 1000 / 1000 @ 125 mls/hr IVC .Q8H [facility] Rx#: [id number] HumuLIN R 100 UNIT In 0.9 % 4.3 / 4.3 23.4 / 23.4 Sodium Chloride 100 ML @ 8 UNIT /HR 8.08 mls/hr IVC CONT [facility] Rx #:[id number] Zosyn 3.375 GM In 0.9 % Sodium 8.3 / 108.3 191.7 / 191.7 Chloride (Mini-Bag +) 100 ML @ 25 mls/hr IVPB Q8H [facility] Rx#: [id number] Oral 1440 / 3480 1320 / 1770 450 / 1770 Blood Product 0 / 0 Rbcs Leuko Poor As-1 Unit 0 / 0 [id number] Output: Urine 1200 / 1600 600 / 1450 850 / 1450 Other: Meal Breakfast Percent of Meal Consumed 100% Stool Size Copious Large Copious Stool Consistency loose loose liquid Stool Color Brown Brown Green # Bowel Movements 1 1 1 Weight 84 kg Blood Glucose* 186 188 271 Patient Weight 09/30/18 23:59 Weight 84 kg - General Appearance General appearance: Present: well-developed, well-nourished EENT: Present: ATNC, mucous membranes moist Neck: Present: no JVD, supple Cardiology: Present: no edema ( R BKA), normal S1, normal S2 Gastrointestinal: Present: no tenderness, no guarding Integumentary: Present: warm and dry Neurologic: Present: no focal deficit Musculoskeletal: Present: no deformities Psychiatric: Present: mood/affect appropriate, cooperative - Lab 10/01/18 06:45 10/01/18 06:45 Most recent lab results 09/29/18 09/30/18 13:20 03:15 Calcium 7.9 L Phosphorus 6.3 H Magnesium 1.7 Urine Creatinine TNP Urine Total Protein TNP Consult Discharge Plan - Plan Referrals: Brijesh Valencia DO [Partnered Physician] -
--- NOTE | 2018-09-30 17:49 | Electrocardiograph Report ---
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
[2018-09-30] MEDS: Insulin DETEMIR 100 UNIT/ML X5UNITS SQ SCH (21:15)
[2018-10-01] MEDS: Piperacillin/Tazobactam 3.375 GM in 0.9 % Sodium Chloride Mini Bag 100 ML IVPB SCH ×3 (02:05→18:13)
[2018-10-01] MEDS: 0.9 % Sodium Chloride 1,000 ML IVC SCH ×2 (02:19→10:21)
[2018-10-01] MEDS: *HR* HYDROcodone/Acet 5/325 mg TABLET PO PRN ×3 (03:37→18:13)
[2018-10-01 07:04] LABS: Basophils # 0.1 K/mcL (0.0-0.2); Basophils % 0.6 %; Eosinophils # 0.4 K/mcL (0.0-0.6); Eosinophils % 4.8 %; Hematocrit 27.2 % (37.5-50.1); Hemoglobin 8.5 g/dL (12.9-16.9); Immature Granulocytes % 0.3 % (0-4); Lymphocytes # 1.8 K/mcL (0.6-4.6); Mean Corpuscular HGB Conc 31.3 g/dL (31.6-35.5); Mean Corpuscular Hemoglobin 28.1 pg (28.0-33.3); Mean Corpuscular Volume 90.1 fL (83.0-100.0); Mean Platelet Volume 10.2 fL (9.4-12.4); Monocytes # 0.7 K/mcL (0.0-1.3); Monocytes % 8.7 %; Neutrophils # 5.1 K/mcL (1.6-8.9); Platelet Count 236 K/mcL (140-400); Red Blood Count 3.02 M/mcL (4.19-5.50); Red Cell Distribution Width 16.2 % (11.5-14.5); Segmented Neutrophils % 63.6 %
[2018-10-01 07:23] LABS: Magnesium 1.6 mg/dL (1.6-2.6); Phosphorous 5.8 mg/dL (2.7-4.5); Potassium 5.7 mEq/L (3.5-5.1)
[2018-10-01] MEDS: amLODIPine 5 MG TABLET PO SCH (08:45)
[2018-10-01] MEDS: Insulin LISPRO 300 UNITS/3 ML VIAL SQ SCH ×4 (08:47→20:48)
[2018-10-01] MEDS ORDERED: *HR* Labetalol 20 MG/4 ML SYRINGE IVP ONE ×2 (09:51→11:35)
--- NOTE | 2018-10-01 09:57 | Internal Med Progress Note ---
Hospitalist Progress Note - Encounter Date of Encounter: 10/01/18 Time of Encounter: 09:45 - Subjective Interval History: No acute events overnight - Exam Vitals: Temp Pulse Resp BP Pulse Ox 97.9 F 89 16 200/102 98 10/01/18 07:48 10/01/18 07:48 10/01/18 07:48 10/01/18 07:48 10/01/18 07:48 Exam: General appearance: Present: A&O X 3, no acute distress Head exam: Present: normocephalic Respiratory exam: Present: CTAB. Absent: accessory muscle use, rales, rhonchi, wheezes Cardiovascular exam: Present: RRR, +S1, +S2. Absent: diastolic murmur, gallop, rubs, systolic murmur GI/Abdominal exam: Soft, NT, ND, +BS Extremities exam: Absent: pedal edema. s/p right BKA. Left lower extremity redness and warmth Neurological exam: Present: alert, oriented X3, no focal deficits. 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 It is stated that he was sentenced to detention yesterday and they are trying to get him medically evaluated due to his complaint of swelling over the past few days. He denied having fever or pain. There were no wounds and intensified on the left leg and no inflammatory signs present. A CT scan was done which showed diffuse subcutaneous edema but no inflammatory signs or and signs for abscess. He also had a duplex done which ruled out DVT. Incidentally on labs he was found to have a potassium of 6.9 and an elevation in his creatinine from his baseline He was assessed with warmth and redness of his left leg secondary to cellulitis. He has been treated with vanc and zosyn and his cellulitis has improved. He was also noted to be hyperkalemic on admission at 6.9. He was given kayexalate and insulin d50/ bicarb and calcium gluconate and his potassium trended down to 5.8 but went back up to 6.6. He was placed on an insulin drip overnight and given more doses of kayexalate. Potassium is currently 5.6 He was also noted to be anemic on admission possibly secondary to chronic kidney disease vs acute GI blood loss. Lowest hgb was 6.9 and he got one unit of blood. Hgb is currently 7.3. He declined endoscopy by GI. He has uncontrolled hyperte nsion and his amlodipine dose has been increased. We were contacted by the detention system who requested transfer to [facility] for state coverage of his security detail as well as for other administrative issues. He was discharged to [facility] in a stable condition. 35 minutes was spent discharging this patient 10/01. Pt couldn't go to [facility] overnight due to detention billing issues with [facility] apparently. Will give scheduled kayexalate doses and repeat potassium (2) Cellulitis Current Visit: Yes Status: Acute Assessment and Plan: Pt comes in with left lower extremity redness and warmth of 3 days duration likely 2/2 to cellulitis Will start on vanc and zosyn . Follow blood cultures Cellulitis improving (3) Anemia Current Visit: Yes Status: Acute Assessment and Plan: Hemoglobin stable s/p prbc transfusion Patient willing to consider endoscopy. Will discuss with GI (4) Acute kidney injury Current Visit: Yes Status: Acute Assessment and Plan: Deric on CKD 3. On iv fluids. Creatinine stable. (5) Hypertension Current Visit: Yes Status: Acute Assessment and Plan: On amlodipine and hydralazine. Monitor BP (6) DVT prophylaxis Current Visit: Yes Status: Acute Assessment and Plan: On heparin sc - Time Spent with Patient Total time spent is greater than 50% in coordination of care (as documented) at patient's floor/unit and/or counseling patient: Internal Medicine: Result - Labs CBC & Chem 7: 10/01/18 06:45 10/01/18 06:45 Labs: Short CBC 10/01/18 Range/Units 06:45 WBC 8.0 (4.3-11.1) K/mcL Hgb 8.5 L (12.9-16.9) g/dL Hct 27.2 L (37.5-50.1) % Plt Count 236 (140-400) K/mcL Neutrophils # 5.1 (1.6-8.9) K/mcL BMP 09/30/18 10/01/18 13:30 06:45 Sodium 138 Potassium 5.6 H 5.7 H Chloride 113 H Carbon Dioxide 16 L BUN 34 H Creatinine 3.29 H Glucose 287 H Calcium 8.0 L - ABG Interpretation ABG results: PT/INR, D-dimer PT 12.4 Seconds (9.4-12.1) H 09/28/18 21:24 Consult Discharge Plan - Plan Referrals: Brijesh Valencia DO [Partnered Physician] - (2) Cellulitis Qualifiers: Site of cellulitis: unspecified site Qualified Code(s): L03.90 - Cellulitis, unspecified (3) Anemia Qualifiers: Qualified Code(s): D64.9 - Anemia, unspecified (5) Hypertension Qualifiers: Qualified Code(s): I10 - Essential (primary) hypertension
[2018-10-01] MEDS ORDERED: Lisinopril 20 MG TABLET PO SCH (10:00)
[2018-10-01] MEDS: hydrALAZINE 25 MG TABLET PO SCH ×2 (10:27→18:13)
[2018-10-01] MEDS ORDERED: Vancomycin 500 MG in 0.9 % Sodium Chloride Mini Bag 100 ML IVPB ONE (15:00)
--- NOTE | 2018-10-01 15:08 | Nephrology Progress Note ---
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 Careful use of vanco in the patient advised (2) Hyperkalemia Current Visit: No Status: Acute Potassium remains about the same at 5.7 Continue renal diet Continue kayexalate will increase bicarb tabs to 650mg bid Agree with lisinopril discontinuation (3) Abscess of right lower extremity Current Visit: No Status: Acute (4) Edema of left lower extremity Current Visit: Yes Status: Acute (5) Proteinuria Current Visit: Yes Status: Acute Qualifiers: Proteinuria type: persistent Qualified Code(s): R80.1 - Persistent proteinuria, unspecified Subjective Interval history: Interim noted, pt seen and examined with no new complaints. Officer at bedside. Per nurse, pt was drinking lots of coffee which is high in potassium content Objective - Vital Signs Vital signs: Vital Signs Temp Pulse Resp BP Pulse Ox 10/01/18 14:39 98.0 F 97 16 163/100 99 10/01/18 11:03 97.9 F 102 16 193/130 98 10/01/18 07:48 97.9 F 89 16 200/102 98 10/01/18 03:27 97.7 F 97 22 177/116 98 10/01/18 00:45 97.9 F 101 18 162/95 99 09/30/18 22:22 98 F 90 16 179/106 99 09/30/18 17:19 98.4 F 98 18 161/101 99 09/30/18 16:04 98.1 F 97 16 181/122 98 Intake and Output 09/30/18 10/01/18 10/01/18 23:59 07:59 15:59 Intake Total 1785 / 5870.1 2154 / 3514 1360 / 3514 Output Total 1200 / 2650 1300 / 2050 750 / 2050 Balance 585 / 3220.1 854 / 1464 610 / 1464 Intake: IV Fluids 100 / 2415.1 1100 / 2100 1000 / 2100 0.9 % Sodium Chloride 1,000 ML 1000 / 2000 1000 / 2000 @ 125 mls/hr IVC .Q8H [facility] Rx#: [id number] Zosyn 3.375 GM In 0.9 % Sodium 100 / 391.7 100 / 100 Chloride (Mini-Bag +) 100 ML @ 25 mls/hr IVPB Q8H [facility] Rx#: [id number] Oral 1335 / 3105 1054 / 1414 360 / 1414 Blood Product 350 / 350 Rbcs Leuko Poor As-1 Unit 350 / 350 [id number] Output: Urine 1200 / 2650 1300 / 2050 750 / 2050 Other: Meal Dinner Breakfast Percent of Meal Consumed 100% 100% Stool Size Large Moderate Stool Consistency liquid loose Stool Characteristics Normal for Patient Stool Color Brown Brown Pale # Bowel Movements 2 1 Weight 81 kg Blood Glucose* 346 226 142 Patient Weight 10/01/18 23:59 Weight 81 kg - Lab 10/01/18 06:45 10/01/18 06:45 Most recent lab results 10/01/18 06:45 Calcium 8.0 L Phosphorus 5.8 H Magnesium 1.6 Consult Discharge Plan - Plan Referrals: Brijesh Valencia DO [Partnered Physician] -
[2018-10-01] MEDS: *HR* Heparin 5,000 UNIT/ML VIAL SQ SCH (18:12)
[2018-10-01] MEDS: *HR* Metoprolol 5 MG/5 ML VIAL IVP PRN (20:48)
[2018-10-01] MEDS: Insulin DETEMIR 100 UNIT/ML X5UNITS SQ SCH (20:49)
[2018-10-02] MEDS: hydrALAZINE 25 MG TABLET PO SCH ×3 (00:31→18:55)
[2018-10-02] MEDS: *HR* HYDROcodone/Acet 5/325 mg TABLET PO PRN ×3 (00:31→18:54)
[2018-10-02 01:30] LABS: APTT (LE Anticoag) 44 sec (32-48); Diluted Russell Viper Venom 33 sec (33-44); PT (LE-Anticoag) 13.4 sec (12.0-15.5)
[2018-10-02] MEDS: Piperacillin/Tazobactam 3.375 GM in 0.9 % Sodium Chloride Mini Bag 100 ML IVPB SCH ×3 (02:20→18:57)
[2018-10-02 04:46] LABS: Basophils # 0.1 K/mcL (0.0-0.2); Basophils % 0.7 %; Eosinophils # 0.5 K/mcL (0.0-0.6); Hematocrit 24.7 % (37.5-50.1); Hemoglobin 7.9 g/dL (12.9-16.9); Immature Granulocytes % 0.4 % (0-4); Lymphocytes # 2.8 K/mcL (0.6-4.6); Lymphocytes % 30.5 %; Mean Corpuscular Hemoglobin 28.5 pg (28.0-33.3); Mean Corpuscular Volume 89.2 fL (83.0-100.0); Mean Platelet Volume 10.4 fL (9.4-12.4); Monocytes # 0.8 K/mcL (0.0-1.3); Monocytes % 8.6 %; Platelet Count 226 K/mcL (140-400); Red Blood Count 2.77 M/mcL (4.19-5.50); Red Cell Distribution Width 16.4 % (11.5-14.5); Segmented Neutrophils % 54.8 %; White Blood Count 9.1 K/mcL (4.3-11.1)
[2018-10-02 05:05] LABS: Calcium 7.7 mg/dL (8.6-10.3); Magnesium 1.5 mg/dL (1.6-2.6); Phosphorous 5.4 mg/dL (2.7-4.5); Potassium 4.8 mEq/L (3.5-5.1)
[2018-10-02] MEDS: *HR* Heparin 5,000 UNIT/ML VIAL SQ SCH ×2 (06:28→18:47)
[2018-10-02 08:48] LABS: Total Volume 24 Hour,Urine 4.16 Liters (0.80-1.80)
[2018-10-02 08:52] LABS: Myeloperoxidase Ab 0 AU/mL (0-19); Serine Protease-3 Antibody 2 AU/mL (0-19)
[2018-10-02] MEDS: amLODIPine 5 MG TABLET PO SCH (09:24)
[2018-10-02] MEDS: Insulin LISPRO 300 UNITS/3 ML VIAL SQ SCH ×4 (09:26→22:51)
--- NOTE | 2018-10-02 09:43 | Internal Med Progress Note ---
Hospitalist Progress Note - Encounter Date of Encounter: 10/02/18 Time of Encounter: 09:30 - Subjective Interval History: No acute events overnight - Exam Vitals: Temp Pulse Resp BP Pulse Ox 98 F 98 20 168/111 99 10/02/18 06:56 10/02/18 06:56 10/02/18 04:14 10/02/18 06:56 10/02/18 04:14 Exam: General appearance: Present: A&O X 3, no acute distress Head exam: Present: normocephalic Respiratory exam: Present: CTAB. Absent: accessory muscle use, rales, rhonchi, wheezes Cardiovascular exam: Present: RRR, +S1, +S2. Absent: diastolic murmur, gallop, rubs, systolic murmur GI/Abdominal exam: Soft, NT, ND, +BS Extremities exam: Absent: pedal edema. s/p right BKA. Left lower extremity redness and warmth Neurological exam: Present: alert, oriented X3, no focal deficits. 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 It is stated that he was sentenced to assisted yesterday and they are trying to get him medically evaluated due to his complaint of swelling over the past few days. He denied having fever or pain. There were no wounds and intensified on the left leg and no inflammatory signs present. A CT scan was done which showed diffuse subcutaneous edema but no inflammatory signs or and signs for abscess. He also had a duplex done which ruled out DVT. Incidentally on labs he was found to have a potassium of 6.9 and an elevation in his creatinine from his baseline He was assessed with warmth and redness of his left leg secondary to cellulitis. He has been treated with vanc and zosyn and his cellulitis has improved. He was also noted to be hyperkalemic on admission at 6.9. He was given kayexalate and insulin d50/ bicarb and calcium gluconate and his potassium trended down to 5.8 but went back up to 6.6. He was placed on an insulin drip overnight and given more doses of kayexalate. Potassium is currently 5.6 He was also noted to be anemic on admission possibly secondary to chronic kidney disease vs acute GI blood loss. Lowest hgb was 6.9 and he got one unit of blood. Hgb is currently 7.3. He declined endoscopy by GI. He has uncontrolled hypertens ion and his amlodipine dose has been increased. 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 He was discharged to [facility] in a stable condition. 35 minutes was spent discharging this patient 10/02. Pt couldn't go to [facility] over the weekend due to assisted billing issues with [facility]. Potassium has corrected this am (2) Cellulitis Current Visit: Yes Status: Acute Assessment and Plan: Pt comes in with left lower extremity redness and warmth of 3 days duration likely 2/2 to cellulitis Will start on vanc and zosyn . Follow blood cultures Cellulitis improving (3) Anemia Current Visit: Yes Status: Acute Assessment and Plan: Hemoglobin stable s/p prbc transfusion Patient willing to consider endoscopy. Will discuss with GI (4) Acute kidney injury Current Visit: Yes Status: Acute Assessment and Plan: Deric on CKD 3. On iv fluids. Creatinine stable. (5) Hypertension Current Visit: Yes Status: Acute Assessment and Plan: On amlodipine and hydralazine. Monitor BP (6) DVT prophylaxis Current Visit: Yes Status: Acute Assessment and Plan: On heparin sc - Time Spent with Patient Total time spent is greater than 50% in coordination of care (as documented) at patient's floor/unit and/or counseling patient: Internal Medicine: Result - Labs CBC & Chem 7: 10/02/18 04:25 10/02/18 04:25 Labs: Short CBC 10/02/18 Range/Units 04:25 WBC 9.1 (4.3-11.1) K/mcL Hgb 7.9 L (12.9-16.9) g/dL Hct 24.7 L (37.5-50.1) % Plt Count 226 (140-400) K/mcL Neutrophils # 5.0 (1.6-8.9) K/mcL BMP 10/02/18 04:25 Sodium 138 Potassium 4.8 Chloride 117 H Carbon Dioxide 15 L BUN 32 H Creatinine 3.08 H Glucose 82 Calcium 7.7 L - ABG Interpretation ABG results: PT/INR, D-dimer PT 12.4 Seconds (9.4-12.1) H 09/28/18 21:24 Consult Discharge Plan - Plan Referrals: Brijesh Valencia DO [Partnered Physician] - (2) Cellulitis Qualifiers: Site of cellulitis: unspecified site Qualified Code(s): L03.90 - Cellulitis, unspecified (3) Anemia Qualifiers: Qualified Code(s): D64.9 - Anemia, unspecified (5) Hypertension Qualifiers: Qualified Code(s): I10 - Essential (primary) hypertension
[2018-10-02] MEDS ORDERED: Vancomycin 500 MG in 0.9 % Sodium Chloride Mini Bag 100 ML IVPB ONE (12:00)
--- NOTE | 2018-10-02 17:23 | Nephrology Progress Note ---
Date of Encounter: 10/02/18 Time of Encounter: 12:00 - Assessment and Plan (1) RORO (acute kidney injury) Current Visit: No Status: Acute (2) Hyperkalemia Current Visit: No Status: Acute (3) Abscess of right lower extremity Current Visit: No Status: Acute (4) Edema of left lower extremity Current Visit: Yes Status: Acute (5) Proteinuria Current Visit: Yes Status: Acute Qualifiers: Proteinuria type: persistent Qualified Code(s): R80.1 - Persistent proteinuria, unspecified (6) CKD stage 4 due to type 1 diabetes mellitus Current Visit: No Status: Chronic Subjective Interval history: Pt seen and examined with no new complaints but having watery diarrhea s/p kayexalate. Officer at bedside. Per nurse, pt requesting imodium now. Objective - Vital Signs Vital signs: Vital Signs Temp Pulse Resp BP Pulse Ox 10/02/18 15:16 97.6 F 100 143/93 95 10/02/18 11:12 98.6 F 107 179/115 98 10/02/18 06:56 98 F 98 168/111 10/02/18 04:14 98.3 F 91 20 163/105 99 10/01/18 23:45 98.5 F 104 22 166/105 97 10/01/18 20:03 98.6 F 105 24 178/129 98 Intake and Output 10/02/18 10/02/18 10/02/18 07:59 15:59 23:59 Intake Total 100 / 1540 1440 / 1540 Output Total 700 / 1200 500 / 1200 Balance -600 / 340 940 / 340 Intake: IV Fluids 100 / 100 Zosyn 3.375 GM In 0.9 % Sodium 100 / 100 Chloride (Mini-Bag +) 100 ML @ 25 mls/hr IVPB Q8H [facility] Rx#: [id number] Oral 1440 / 1440 Output: Urine 700 / 1200 500 / 1200 Other: Meal Lunch Percent of Meal Consumed 100% Stool Size Small Stool Consistency loose liquid Stool Characteristics Normal for Patient Seedy Stool Color Green # Bowel Movements 1 Blood Glucose* 93 184 299 - Lab 10/02/18 04:25 10/02/18 04:25 Most recent lab results 10/01/18 08:53 Urine Creatinine 25 Ur Total Protein 24 Hr 61818 H Urine Total Protein 356 H Consult Discharge Plan - Plan Referrals: Brijesh Valencia DO [Partnered Physician] -
[2018-10-02 18:05] LABS: ANA IgG by ELISA NONE DETECTED (None Detected)
[2018-10-02] MEDS: Insulin DETEMIR 100 UNIT/ML X5UNITS SQ SCH (22:52)
[2018-10-03] MEDS: hydrALAZINE 25 MG TABLET PO SCH ×2 (00:55→06:26)
[2018-10-03] MEDS: *HR* HYDROcodone/Acet 5/325 mg TABLET PO PRN (00:58)
[2018-10-03] MEDS: Piperacillin/Tazobactam 3.375 GM in 0.9 % Sodium Chloride Mini Bag 100 ML IVPB SCH ×2 (00:59→09:23)
[2018-10-03 04:47] LABS: Basophils # 0.1 K/mcL (0.0-0.2); Basophils % 0.9 %; Eosinophils # 0.5 K/mcL (0.0-0.6); Eosinophils % 4.9 %; Hematocrit 25.6 % (37.5-50.1); Hemoglobin 8.1 g/dL (12.9-16.9); Immature Granulocytes % 0.4 % (0-4); Lymphocytes # 2.7 K/mcL (0.6-4.6); Lymphocytes % 29.6 %; Mean Corpuscular HGB Conc 31.6 g/dL (31.6-35.5); Mean Corpuscular Volume 88.6 fL (83.0-100.0); Mean Platelet Volume 10.4 fL (9.4-12.4); Monocytes # 0.8 K/mcL (0.0-1.3); Monocytes % 8.3 %; Neutrophils # 5.2 K/mcL (1.6-8.9); Platelet Count 247 K/mcL (140-400); Red Blood Count 2.89 M/mcL (4.19-5.50); Red Cell Distribution Width 16.5 % (11.5-14.5); Segmented Neutrophils % 55.9 %; White Blood Count 9.3 K/mcL (4.3-11.1)
[2018-10-03 05:06] LABS: Calcium 7.9 mg/dL (8.6-10.3); Magnesium 1.9 mg/dL (1.6-2.6); Phosphorous 6.7 mg/dL (2.7-4.5); Potassium 5.5 mEq/L (3.5-5.1)
[2018-10-03] MEDS: *HR* Heparin 5,000 UNIT/ML VIAL SQ SCH (06:17)
[2018-10-03 08:18] VITALS: BP 152/107
[2018-10-03] MEDS: amLODIPine 5 MG TABLET PO SCH (09:24)
[2018-10-03] MEDS: *HR* OxyCODONE Immed Rel 5 MG TABLET PO PRN (09:24)
[2018-10-03] MEDS: Insulin LISPRO 300 UNITS/3 ML VIAL SQ SCH (09:24)
[2018-10-03] MEDS ORDERED: Vancomycin 500 MG in 0.9 % Sodium Chloride Mini Bag 100 ML IVPB ONE (09:55)
--- NOTE | 2018-10-03 12:02 | Discharge Summary ---
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 It is stated that he was sentenced to snf yesterday and they are trying to get him medically evaluated due to his complaint of swelling over the past few days. He denied having fever or pain. There were no wounds and intensified on the left leg and no inflammatory signs present. A CT scan was done which showed diffuse subcutaneous edema but no inflammatory signs or and signs for abscess. He also had a duplex done which ruled out DVT. Incidentally on labs he was found to have a potassium of 6.9 and an elevation in his creatinine from his baseline He was assessed with warmth and redness of his left leg secondary to cellulitis. He has been treated with vanc and zosyn and his cellulitis has improved. He was also noted to be hyperkalemic on admission at 6.9. He was given kayexalate and insulin d50/ bicarb and calcium gluconate and his potassium trended down to 5.8 but went back up to 6.6. He was placed on an insulin drip overnight and given more doses of kayexalate. He was also noted to be anemic on admission possibly secondary to chronic kidney disease vs acute GI blood loss. Lowest hgb was 6.9 and he got one unit of blood. Hgb is currently 7.3. He declined endoscopy by GI. He has uncontrolled hypertension and his amlodipine dose has been increased.His creatinine is stable per endoscopy and his potassium has corrected. He had uncontrolled hypertension and he was started on labetalol and hydralazine po in addition to his amlodipine 35 minutes was spent discharging this patient (2) Cellulitis Priority: Primary Status: Acute Qualifiers: Site of cellulitis: unspecified site Qualified Code(s): L03.90 - Cellulitis, unspecified (3) Anemia Priority: Primary Status: Acute Qualifiers: Qualified Code(s): D64.9 - Anemia, unspecified (4) Acute kidney injury Priority: Primary Status: Acute (5) Hypertension Priority: Primary Status: Acute Qualifiers: Qualified Code(s): I10 - Essential (primary) hypertension (6) DVT prophylaxis Priority: Primary Status: Acute Hospital course: Mr. Anders is a 28 year old male - Time Spent with Patient Total time spent providing and/or coordinating discharge services: - Discharge Medications Prescriptions: New amLODIPine [Norvasc] 10 mg PO DAILY 30 Days #30 tablet Labetalol [Trandate] 100 mg PO BID #60 tablet hydrALAZINE [HydrALAZINE] 100 mg PO Q8HR #90 tablet Sodium Bicarbonate 650 mg PO BID #60 tablet Continued Insulin ASPART [NovoLOG] 0 unit SQ TIDWM Cyclobenzaprine [Flexeril] 10 mg PO TID Insulin Glargine [Lantus] 15 unit SQ HS Loperamide [Imodium] 2 - 4 mg PO TID PRN PRN Reason: Diarrhea Dextrose [Glucose] 4 gm PO AD PRN PRN Reason: Blood Sugar - Low Dextrose Gel [Gluctose] 1 tube PO AD PRN PRN Reason: Blood Sugar - Low Furosemide [Lasix] 20 mg PO DAILY Glucagon,Human Recombinant [Glucagon Emergency Kit] 1 mg SQ AD PRN PRN Reason: Blood Sugar - Low Insulin Glargine [Lantus] 7 unit SQ HS Discontinued amLODIPine [Norvasc] 5 mg PO DAILY Sodium Bicarbonate 325 mg PO TID Home Medications: Insulin ASPART [NovoLOG] 0 unit SQ TIDWM 09/06/18 [History] Cyclobenzaprine [Flexeril] 10 mg PO TID 09/14/18 [History] Insulin Glargine [Lantus] 15 unit SQ HS 09/14/18 [History] Loperamide [Imodium] 2 - 4 mg PO TID PRN 09/14/18 [History] Dextrose Gel [Gluctose] 1 tube PO AD PRN 09/29/18 [History] Dextrose [Glucose] 4 gm PO AD PRN 09/29/18 [History] Furosemide [Lasix] 20 mg PO DAILY 09/29/18 [History] Glucagon,Human Recombinant [Glucagon Emergency Kit] 1 mg SQ AD PRN 09/29/18 [History] Insulin Glargine [Lantus] 7 unit SQ HS 09/29/18 [History] Labetalol [Trandate] 100 mg PO BID #60 tablet 10/03/18 [Rx] Sodium Bicarbonate 650 mg PO BID #60 tablet 10/03/18 [Rx] amLODIPine [Norvasc] 10 mg PO DAILY 30 Days #30 tablet 10/03/18 [Rx] hydrALAZINE [HydrALAZINE] 100 mg PO Q8HR #90 tablet 10/03/18 [Rx] Allergies/Adverse Reactions: Allergy/AdvReac Type Severity Reaction Status Date / Time tramadol Allergy Swelling Verified 09/29/18 08:47 of Lip/Tongue/Throat Date of admission: 09/30/18 14:08 Primary care physician: PCP NONE Consults: 09/28/18 21:02 Consult to Wound Care [CONS] Routine Reason for Consult: Non healing ulcer after amputation Call Completed: No 09/28/18 23:55 Consult to Family Practice Doctor [CONS] Routine Reason for SW Consult: to f/u upon D/C patient has deputy at bedside patient is from snf 09/29/18 06:09 Consult to Nephrology [CONS] Routine Consulting Provider: Kidney Hannah/JANIE/MINERVA/ASNTOSH Reason for Consult: 28 year old diabetic male who is poorly controlled presenting with progression of underlying CKD and recurring hyperkalemia Call Completed: No 09/29/18 07:39 Consult to Gastroenterology [CONS] Routine Consulting Provider: Gastroenterology Hannah Reason for Consult: anemia r/o gi bleed Call Completed: No 09/29/18 09:35 Consult to Invasive Line Access Team [CONS] Routine Reason for Consult: poor iv access Line Type: EPIV - Constitutional Vitals: Temp Pulse Resp BP Pulse Ox 98.4 F 102 16 152/107 98 10/03/18 08:05 10/03/18 08:05 10/03/18 08:05 10/03/18 08:05 10/03/18 09:30 Exam: General appearance: Present: A&O X 3, no acute distress Head exam: Present: normocephalic Respiratory exam: Present: CTAB. Absent: accessory muscle use, rales, rhonchi, wheezes Cardiovascular exam: Present: RRR, +S1, +S2. Absent: diastolic murmur, gallop, rubs, systolic murmur GI/Abdominal exam: Soft, NT, ND, +BS Extremities exam: Absent: pedal edema. s/p right BKA. Left lower extremity redness and warmth Neurological exam: Present: alert, oriented X3, no focal deficits. Absent: altered - Patient Status Disposition: Transfer [facility] Condition: Good - Discharge Instructions Follow Up With: Brijesh Valencia DO [Partnered Physician] -
== END 2018-10-03 13:10 | DRG 683 ==
LOC: 2NENU
PROVIDERS: ADMIT Internal Medicine Nephrology; ATTEND Internal Medicine Nephrology